=== PATIENT | female | born 1950 | race Caucasian/White ===

== ENCOUNTER 2017-09-13 14:24 | Inpatient (IN) | payer BC ==
[~2017-09-13] VITALS: Ht 172.7 cm; Wt 79.4 kg
[2017-09-13] MEDS ORDERED: BUPROPION HCL SR 150 MG TABLET (14:52)
[2017-09-13] MEDS ORDERED: ESCITALOPRAM 10 MG TABLET (14:52)
[2017-09-13] MEDS ORDERED: HYDROCODON-ACETAMINOPHN 10-325 (14:52)
--- NOTE | 2017-09-13 15:00 | NUR ---
PRESENTS TO ER C/O CONSTIPATION X 5 DAYS WITH LOWER ABDOMINAL PAIN. PATIENT A/OX 4. BREATHING EVEN AND UNLABORED. NO SOB. VITALS STABLE. SAFETY AND COMFORT MEASURES IN PLACE. AWAITING MD ORDERS.
--- NOTE | 2017-09-13 15:25 | NUR ---
NEW IV STARTED ON LAC, 18 G. BLOOD DRAWN AND SENT TO LAB.
[2017-09-13] MEDS ORDERED: ONDANSETRON HCL/PF 4 MG/2 ML VIAL ONE (15:26)
[2017-09-13] MEDS ORDERED: MORPHINE SULFATE INJ 2 MG/ML DISP.SYRIN ONE (15:26)
[2017-09-13 15:27] LABS: BASOPHILS # (AUTO) 0.1 /CMM (0.0-0.2); BASOPHILS % (AUTO) 1.2 % (0.0-2.0); HEMATOCRIT 44 % (33-45); HEMOGLOBIN 14.7 g/dL (11.5-14.8); LYMPHOCYTES # (AUTO) 0.4 /CMM (0.8-4.8); LYMPHOCYTES % (AUTO) 4.8 % (20.0-44.0); MEAN CORPUSCULAR HEMOGLOBIN 33 PG (26.0-33.0); MEAN CORPUSCULAR HGB CONC 33 g/dl (31.0-36.0); MEAN CORPUSCULAR VOLUME 99 fL (82-100); MONOCYTES # (AUTO) 0.6 /CMM (0.1-1.30); MONOCYTES % (AUTO) 6.2 % (2.0-12.0); NEUTROPHILS # (AUTO) 7.8 /CMM (1.8-8.9); NEUTROPHILS % (AUTO) 87.8 % (43.0-81.0); PLATELET COUNT (AUTO) 268 /CMM (150-450); RDW COEFFICIENT OF VARIATION 11.9 (11.5-15.0); RED BLOOD CELL COUNT(AUTO) 4.46 MIL/uL (4.0-5.2); WHITE BLOOD COUNT (AUTO) 8.9 K/uL (4.3-11.0)
[2017-09-13] MEDS ORDERED: ONDANSETRON HCL/PF 4 MG/2 ML VIAL IVP ONE (15:30)
[2017-09-13] MEDS ORDERED: IV NS 0.9% 1,000 ML BAG IV ONE (15:30)
[2017-09-13] MEDS ORDERED: MORPHINE SULFATE INJ 2 MG/ML DISP.SYRIN IV ONE (15:30)
--- NOTE | 2017-09-13 15:34 | NUR ---
PATIENT MEDICATED PER MD ORDERS.
[2017-09-13 15:37] LABS: CALCIUM, SERUM 9.1 mg/dL (8.5-10.1); CREATININE 1.3 mg/dL (0.6-1.3); POTASSIUM 4.1 mmol/L (3.5-5.1)
[2017-09-13 15:42] LABS: ALBUMIN 3.3 g/dL (3.4-5.0); BILIRUBIN,DIRECT 0.4 mg/dL (0.0-0.2); BILIRUBIN,TOTAL 1.2 mg/dL (0.2-1.0); TOTAL PROTEIN, SERUM 7.3 g/dL (6.4-8.2)
[2017-09-13] MEDS ORDERED: HYDR-3658 PO (16:41)
[2017-09-13] MEDS ORDERED: ESCI10TA PO (16:41)
[2017-09-13] MEDS ORDERED: FLUT16SP16 NS (16:41)
[2017-09-13] MEDS ORDERED: BUPR150T10 PO (16:41)
--- NOTE | 2017-09-13 16:46 | NUR ---
CALLED NURSE SUP FOR TELE BED
[2017-09-13] MEDS ORDERED: METRONIDAZOLE 500MG/ NS 100ML 100 ML IV ONE (16:47)
[2017-09-13] MEDS ORDERED: CIPROFLOXACIN IV RTU 200 ML IV ONE (16:47)
[2017-09-13] MEDS ORDERED: METRONIDAZOLE 500MG/ NS 100ML 500 MG in PREMIX 1 EA IV SCH (17:00)
[2017-09-13] MEDS ORDERED: CIPROFLOXACIN IV RTU 400 MG in PREMIX 1 EA IV SCH (17:00)
--- NOTE | 2017-09-13 17:27 | NUR ---
MEAT TEAM LEAD REPORT NOTE RECEIVED TELEPHONE REPORT FROM REAL ESTATE FINANCIAL ANALYST SUSHANT. AWAITING FOR THE PATIENT'S ARRIVAL TO THE UNIT.
--- NOTE | 2017-09-13 17:35 | NUR ---
REPORT GIVEN TO THIERNO SHEPHERD FOR SHERMAN UPON ADMISSION.
[2017-09-13] MEDS ORDERED: ONDANSETRON HCL/PF 4 MG/2 ML VIAL IVP PRN (18:00)
[2017-09-13] MEDS ORDERED: FENTANYL PF 100MCG/2ML AMPUL IV PRN (18:00)
[2017-09-13] MEDS ORDERED: ACETAMINOPHEN 650 MG/SUPP.RECT RC PRN (18:00)
[2017-09-13 18:03] VITALS: BP 90/62
--- NOTE | 2017-09-13 18:03 | NUR ---
MS RN ADMITTING NOTE PATIENT ARRIVED TO THE UNIT. PATIENT IS 67 Y/O FEMALE, A/OX4,AWAKE, COOPERATIVE, ORIENTED TO OWN ABILITY, AMBULATORY. SKIN INTACT WITH SMALL RED SCRATCHMARKS PRESENT ON THE ABDOMEN. PER PATIENT'S REPORT THOSE ARE DUE TO SCRATCHING THE AREA HEATED BY THE HEAT PAD. PATIENT DENIES SOB, DIFFICULTY BREATHING. REPORTS ACUTE PAIN RATING 9/10 IN LOWER ABDOMEN. WILL ADMINISTER MORPHINE PRESCRIBED. LEFT AC 18 G PERIPHERAL IV IS INTACT. NO S/S INFILTRATION ON IV SITE. BED IS LOCKED, IN LOWEST POSITION, SIDE RAILS UP X2, BED ALARM IS ON. PATIENT IS IN GANDHI'S POSITION. ALL NEEDS MET AT THIS TIME. CALL LIGHT WITHIN REACH. PATIENT WAS EDUCATED TO USE THE CALL LIGHT TO CALL FOR ASSISTANCE AND VERBALIZED FULL UNDERSTANDING OF THE TEACHINGS. WILL ENDORSE TO THE COMPUTATIONAL CHEMIST NURSE TO CONTINUE THE ADMISSION PROCESS.
--- NOTE | 2017-09-13 18:05 | NUR ---
PATIENT TRANSPORTED TO [facility] VIA ACLS PROTOCOL FOR ADMISSION. RNTHIERNO TO PROVIDE SHERMAN.
[2017-09-13] MEDS: ENOXAPARIN SODIUM 40 MG/0.4 ML DISP.SYRIN SQ SCH (18:56)
[2017-09-13] MEDS: IV NS 0.9% 1,000 ML IV PRN (19:09)
[2017-09-13] MEDS: MORPHINE SULFATE INJ 4 MG/ML DISP.SYRIN IV PRN ×2 (19:11→23:29)
--- NOTE | 2017-09-13 19:20 | NUR ---
GLASS FURNACE OPERATORWATCH INSPECTOR FINAL MOVEMENT NOTES RECEIVED PATIENT RESTING IN BED, A & O X 4. NO SOB, NO ACUTE CHANGES NOTED. HAS C/O ABD PAIN, PRN MORPHINE GIVEN ALREADY BY AM RN. BODY CHECK DONE. PHOTOS TAKEN. IV ACCESS TO LAC, INTACT PATENT RUNNING WITH NS @ 75 ML/HR. AMBULATORY, NPO @ THIS TIME. ON TELE MONITORING. ALL BELONGINGS ACCOUNTED FOR BY AM BRICK BURNER & DOCUMENTED. BED IN LOW LOCKED POSITION. ALL ORDERS WERE VERIFIED BY AM RN WITH MD. CALL LIGHT WITHIN REACH. WILL CONTINUE TO OBSERVE CLOSELY.
[2017-09-13 20:00] VITALS: BP 106/64
[2017-09-13] MEDS: CEFAZOLIN 1 GM in IV D5W 50 ML IV SCH (20:55)
--- NOTE | 2017-09-13 23:29 | NUR ---
PRN MORPHINE GIVEN PT C/O ABDOMINAL PAIN 05/15 & WANTED TO TAKE MORPHINE. PRN MORPHINE GIVEN. WILL REASSESS FOR EFFECTIVENESS.
[2017-09-14] VITALS (7 sets, daily range): BP systolic 98–128; BP diastolic 65–98
[2017-09-14] MEDS: METRONIDAZOLE 500MG/ NS 100ML 500 MG in PREMIX 1 EA IV SCH ×4 (00:09→17:14)
[2017-09-14] MEDS: MORPHINE SULFATE INJ 4 MG/ML DISP.SYRIN IV PRN ×5 (04:17→21:28)
--- NOTE | 2017-09-14 04:17 | NUR ---
PRN MORPHINE GIVEN PT C/O ABDOMINAL PAIN 05/15 & WANTED TO TAKE MORPHINE. PRN MORPHINE GIVEN. NO ACUTE DISTRESS NOTED. WILL REASSESS.
[2017-09-14] MEDS: CEFAZOLIN 1 GM in IV D5W 50 ML IV SCH ×3 (04:55→21:26)
[2017-09-14 05:57] LABS: EOSINOPHILS % (AUTO) 0.1 % (0.0-6.0); HEMATOCRIT 39 % (33-45); LYMPHOCYTES # (AUTO) 0.4 /CMM (0.8-4.8); MEAN CORPUSCULAR HEMOGLOBIN 33 PG (26.0-33.0); MEAN CORPUSCULAR HGB CONC 34 g/dl (31.0-36.0); MEAN CORPUSCULAR VOLUME 99 fL (82-100); MONOCYTES # (AUTO) 0.7 /CMM (0.1-1.30); MONOCYTES % (AUTO) 8.2 % (2.0-12.0); NEUTROPHILS # (AUTO) 7.9 /CMM (1.8-8.9); NEUTROPHILS % (AUTO) 87.7 % (43.0-81.0); PLATELET COUNT (AUTO) 231 /CMM (150-450); RDW COEFFICIENT OF VARIATION 12.6 (11.5-15.0); RED BLOOD CELL COUNT(AUTO) 3.91 MIL/uL (4.0-5.2)
[2017-09-14 06:19] LABS: CALCIUM, SERUM 8.4 mg/dL (8.5-10.1); MAGNESIUM 2.5 mg/dL (1.8-2.4); PHOSPHORUS 3.7 mg/dL (2.5-4.9); POTASSIUM 4.7 mmol/L (3.5-5.1)
--- NOTE | 2017-09-14 06:52 | NUR ---
REPAIR ARMATURE WINDER HELPER CLOSING NOTES PATIENT SLEPT WELL @ NIGHT. NO ACUTE DISTRESS NOTED. HAD C/O PAIN @ NIGHT. PRN MEDS GIVEN & WAS EFFECTIVE. IV ACCESS TO LAC, INTACT PATENT RUNNING WITH NS @ 75 ML/HR. ALL NEEDS MET. NO N/V NOTED. NPO. BRP. ON TELE MONITORING WITH SR 82 . BED IN LOW LOCKED POSITION. CALL LIGHT WITHIN REACH. WILL ENDORSE TO AM RN FOR CONTINUITY OF CARE.
[2017-09-14 06:53] LABS: THYROID STIMULATING HORMONE 1.483 uIU/mL (0.358-3.74)
--- NOTE | 2017-09-14 07:45 | NUR ---
RN INITIAL NOTES RECEIVED PT UP IN BED, ALERT, AWAKE, ABLE TO VERBALIZE NEEDS, NOTED WITH NO SOB, BREATHING EVEN AND UNLABORED, NO SIGNS OF ACUTE DISTRESS. IV NS INFUSING WELL ON LAC PERIPHERAL LINE @ 75 ML/HR. ALL PATIENT'S NEEDS ATTENDED TO. CALL LIGHT PLACED WITHIN EASY REACH. WILL CONTINUE TO MONITOR.
[2017-09-14] MEDS: PANTOPRAZOLE 40 MG VIAL IV SCH (08:49)
--- NOTE | 2017-09-14 10:37 | NUR ---
RN NOTE TAP WATER ENEMA DONE. PATIENT TOLERATED PROCEDURE WELL. WILL MONITOR FOR RESULTS.
--- NOTE | 2017-09-14 10:39 | NUR ---
RN NOTE PATIENT SEEN AND EXAMINED BY DR. GREY WITH NEW ORDERS, PATIENT MAY HAVE ICE CHIPS AND WATER AND MAY HAVE A TAP WATER ENEMA X 1. ALL ORDERS NOTED AND CARRIED OUT. PATIENT AWARE AND AGREES WITH PLAN OF CARE.
[2017-09-14] MEDS: IV NS 0.9% 1,000 ML IV PRN (11:18)
--- NOTE | 2017-09-14 15:30 | NUR ---
RN NOTES PATIENT SEEN AND EXAMINED BY DR. MCCLELLAND, AWAITING FOR CT OF ABD RESULT. PLAN OF CARE DISCUSSED WITH PATIENT AND PATIENT AGREES.
[2017-09-14] MEDS: FENTANYL PF 100MCG/2ML AMPUL IV PRN (15:45)
--- NOTE | 2017-09-14 18:36 | NUR ---
RN CLOSING NOTES PATIENT IN BED, ALERT AND ORIENTED X 4, SLEEPING BUT EASILY AROUSABLE, PATIENT WITH NO SOB NOTED, BREATHING EVEN AND UNLABORED, NO SIGNS AND SYMPTOMS OF ACUTE DISTRESS NOTED. PATIENT WITH IV NS INFUSING AT 75 CC ML/HR VIA PERIPHERAL LINE G22 ON LFA. ALL PATIENT'S NEEDS ATTENDED TO. PLACED CALL LIGHT WITHIN EASY REACH. WILL ENDORSE TO [facility] NURSE FOR SHERMAN.
--- NOTE | 2017-09-14 19:43 | NUR ---
MS RN OPENING NOTES RECEIVED PATIENT RESTING IN BED, A & O X 4. NO SOB NOTED. HAD C/O ABD PAIN 01/13, PRN MORPHINE WAS GIVEN ORDERED. NPO BUT CAN HAVE ICE CHIPS WHEN NEEDED. IV ACCESS TO DFA, INTACT PATENT RUNNING WITH NS @ 75 ML/HR. CALL LIGHT WITHIN REACH. BED IN LOW LOCKED POSITION. WILL CONTINUE TO OBSERVE.
--- NOTE | 2017-09-14 19:50 | NUR ---
DR MCCLELLAND CALLED CALLED, REVIEWED THE CT ABD/PELVIS WITH NEW ORDERS. NOTED & CARRIED OUT ALL ORDERS. WILL OBSRVE THE PT CLOSELY.
--- NOTE | 2017-09-14 19:50 | NUR ---
ADDENDUM DR. MCCLELLAND SPOKE TO THE PT OVER THE PHONE & EXPLAINED HER ABOUT CT SCAN RESULTS & PLAN OF CARE. PT VERBALIZED UNDERSTANDING.
--- NOTE | 2017-09-14 20:10 | NUR ---
LUIS, TANNING DRUM OPERATOR CALLED TANNING DRUM OPERATOR LUIS CALLED, REVIEWED THE CT OF ABD/PELVIS WITH NEW ORDERS. NOTED & CARRIED OUT. WILL MONITOR CLOSELY.
--- NOTE | 2017-09-14 20:55 | NUR ---
O2 STARTED PT STARTED ON 2LMP O2 NC DUE TO FLUCTUATING O2SAT BETWEEN 89-92 % @ RA. O2SAT NOTED TO BE UP TO 94 % AFTER O2 STARTED. IN SEMI GANDHI POSITION & WANTED TO BE IN THAT POSITION SINCE SHE FEELS COMFORTABLE.
[2017-09-14] MEDS ORDERED: IV NS 0.9% 500 ML IV ONE (21:00)
[2017-09-14] MEDS: ENOXAPARIN SODIUM 40 MG/0.4 ML DISP.SYRIN SQ SCH (21:31)
[2017-09-14] MEDS: IV D5/ 0.9% NACL 1,000 ML IV PRN (21:42)
[2017-09-15] MEDS: METRONIDAZOLE 500MG/ NS 100ML 500 MG in PREMIX 1 EA IV SCH ×5 (00:15→23:46)
[2017-09-15] MEDS: BLOOD SUGAR DIAGNOSTIC 1 EACH STRIP IN SCH ×5 (00:15→23:56)
--- NOTE | 2017-09-15 00:45 | NUR ---
PORTABLE BLADDER SCAN DONE PORTABLE BLADDER SCAN WAS DONE TO CHECK URINE VOLUME IN THE BLADDER & ABOUT 143ML OF URINE WAS NOTED DURING THE SCAN. CHARGE NURSE MADE AWARE & CN STATED THAT LAI CATH IS RECOMMENDED IF URINE VOL IS OVER 200ML. PT IS ABLE TO USE THE TOILET ON HER OWN. URINE OUT PUT WILL BE DONE @ THE END OF THE SHIFT.
[2017-09-15] MEDS: MORPHINE SULFATE INJ 4 MG/ML DISP.SYRIN IV PRN ×5 (02:26→23:45)
--- NOTE | 2017-09-15 02:26 | NUR ---
PRN MORPHINE GIVEN PT C/O ABDOMINAL PAIN 06/15. PRN MORPHINE GIVEN, CONTINUING TO OBSERVE CLOSELY & WILL REASSESS FOR EFFECTIVENESS.
--- NOTE | 2017-09-15 03:28 | NUR ---
LAI CATH INSERTED PATIENT NOTED TO HAVE LESS URINE OUTPUT WHILE URINATING. ON CONTINUOS IV FLUIDS, NPO. CODING SPEC LUIS MADE AWARE WITH NEW ORDER TO INSERT LAI. ORDER NOTED & CARRIED OUT. LAI CATH INSERTED USING STERILE TECHNIQUES WITH ALPESH/CONCENTRATED COLOR URINE FLOWING INTO THE LAI BAG. PROCEDURE TOLERATED WELL BY THE PATIENT. WILL CONTINUE TO MEASURE INTAKE & OUTPUT ORDERED.
[2017-09-15] MEDS: CEFAZOLIN 1 GM in IV D5W 50 ML IV SCH ×3 (05:12→22:06)
[2017-09-15 07:20] LABS: BILIRUBIN,TOTAL 0.3 mg/dL (0.2-1.0); CALCIUM, SERUM 8.2 mg/dL (8.5-10.1); CREATININE 0.7 mg/dL (0.6-1.3); POTASSIUM 4.5 mmol/L (3.5-5.1); TOTAL PROTEIN, SERUM 5.6 g/dL (6.4-8.2)
[2017-09-15 08:00] VITALS: BP 120/76
--- NOTE | 2017-09-15 08:00 | NUR ---
MS RN CLOSING NOTES PATIENT SLEPT INTERMITTENTLY @ NIGHT. HAD C/O ABD PAIN, PRN PAIN MEDS GIVEN. LAI CATH IN PLACE, FLOWING WITH DARK ALPESH/CONCENTRATED COLOR URINE. PT STATED INSERTING A LAI RELIEVED PAIN FROM ONE AREA OF HER ABD. IV ACCESS TO LFA, RUNNING WITH D5NS @ 125 ML/HR. NO SOB NOTED. ON O2 @ 2 LMP VIA NC. NPO AFTER MIDNIGHT. BED IN LOW LOCKED POSITION. CALL LIGHT WITHIN REACH. ENDORSED TO AM RM ABOUT PT'S CONDITION.
--- NOTE | 2017-09-15 08:00 | NUR ---
RN NOTES RECEIVED PATIENT IN THE ROOM, A/O X4, NO RESPIRATORY DISTRESS, PATIENT NPO STATUS, GOING TO HAVE A CT OF ABDOMEN/PELVIC WITH IV CONTRAST. IV LINE ON LEFT FOREARM INFUSING D5 NS AT 125 ML/HR INTACT, PATIENT C/O PAIN IN THE ABDOMEN, CALL LIGHT WITHIN TO REACH, SAFETY PRECAUTION MAINTAINED ALL THE TIME.
[2017-09-15] MEDS ORDERED: DIATR MEGLU/DIATRIZOATE SODIUM 30 ML BOTTLE (GASTROGRAPHIN) ONE (08:42)
[2017-09-15] MEDS: PANTOPRAZOLE 40 MG VIAL IV SCH (08:59)
--- NOTE | 2017-09-15 09:00 | NUR ---
RN NOTES PATIENT WAS COMPLAINING OF ABDOMINAL PAIN 07/15, ADMINISTERED MORPHINE SULFATE 4MG/ML IV PUSH, PER PATIENT REQUEST, ALSO PATIENT NPO, GOING TO HAVE A CT ABDOMEN/PELVIS WITH IV CONTRAST. PATIENT DRINKING GASTROGRAFIN MED DILUTED WITH WATER 800 ML, FOR BOWEL PREPARATION BY X-RAY TECH, V/S TAKE STABLE BP -120/76, P-81, SEEN LUIS BORGES HONEY PRODUCER, AND SURGEON. CALL LIGHT WITHIN TO REACH, CONTINUED MONITORING.
[2017-09-15 09:15] LABS: HEMATOCRIT 37 % (33-45); HEMOGLOBIN 12.3 g/dL (11.5-14.8); LYMPHOCYTES # (AUTO) 0.4 /CMM (0.8-4.8); LYMPHOCYTES % (AUTO) 3.8 % (20.0-44.0); MEAN CORPUSCULAR HEMOGLOBIN 33 PG (26.0-33.0); MEAN CORPUSCULAR HGB CONC 33 g/dl (31.0-36.0); MEAN CORPUSCULAR VOLUME 99 fL (82-100); MONOCYTES # (AUTO) 0.6 /CMM (0.1-1.30); MONOCYTES % (AUTO) 5.5 % (2.0-12.0); NEUTROPHILS # (AUTO) 9.1 /CMM (1.8-8.9); NEUTROPHILS % (AUTO) 90.7 % (43.0-81.0); PLATELET COUNT (AUTO) 252 /CMM (150-450); RDW COEFFICIENT OF VARIATION 12.9 (11.5-15.0); RED BLOOD CELL COUNT(AUTO) 3.78 MIL/uL (4.0-5.2); WHITE BLOOD COUNT (AUTO) 10.1 K/uL (4.3-11.0)
[2017-09-15] MEDS: IV D5/ 0.9% NACL 1,000 ML IV PRN ×2 (09:26→22:08)
[2017-09-15 10:36] LABS: BAND % (MANUAL) 28 % (0.0-5.0); LYMPHOCYTES % (MANUAL) 4 % (16-48); MONOCYTES % (MANUAL) 7 % (0-11.0); NEUTROPHILS % (MANUAL) 61 (42-76)
--- NOTE | 2017-09-15 11:56 | NUR ---
RN NOTES PATIENT GOING AT THIS TIME TO CT ABDOMEN/ PELVIS EXAMINATION WITH IV CONTRAST. PATIENT SHINGLE SAWYER BY X-RAY TECH.
[2017-09-15] MEDS ORDERED: IV NS 0.9% 250 ML IV ONE (12:00)
[2017-09-15] MEDS ORDERED: CT SWABBABLE VALVE TRANS SET 1 EA INFUS.SET MC ONE (12:00)
[2017-09-15] MEDS ORDERED: IOHEXOL-300 100 ML VIAL IV ONE (12:00)
--- NOTE | 2017-09-15 12:42 | NUR ---
RN NOTES PATIENT BACK FROM CT SCAN, STILL NPO, BS-123 MG/DL, INFUSING D5 NS 125 ML/HR, INTACT, CALL LIGHT WITHIN TO REACH, LAI CATHETER DRAIN DARK YELLOW OUTPUT, CONTINUED MONITORING.
--- NOTE | 2017-09-15 13:48 | NUR ---
RN NOTES ADMINISTERED MORPHINE 4/1 MG/ML IV PUSH PER PATIENT REQUEST FOR ABDOMINAL PAIN 03/15, V/S TAKEN STABLE BP- 114/67, P-74, CALL LIGHT WITHIN TO REACH, CONTINUED MONITORING.
[2017-09-15 15:33] LABS: INR 1.03 (0.87-1.13); PROTHROMBIN TIME 10.7 SECS (9.5-12.7)
[2017-09-15 16:00] VITALS: BP 128/70
--- NOTE | 2017-09-15 16:54 | NUR ---
RN NOTES PATIENT IN THE BED RESTING, NO ACUTE DISTRESS, MEDICATION WERE ADMINISTERED FOR PAIN EFFECTIVE, F/C DRAIN YELLOW OUTPUT, PATIENT STILL NPO, CALL LIGHT WITHIN TO REACH, SAFETY PRECAUTION MAINTAINED ALL THE TIME.
--- NOTE | 2017-09-15 17:00 | NUR ---
RN NOTES BS- 145 MG/DL, NO COVERAGE GIVEN BECAUSE PATIENT NPO. AYANA UED MONITORING.
--- NOTE | 2017-09-15 18:41 | NUR ---
RN NOTES ADMINISTERED MORPHINE 4 MG/ML IV PUSH PER PATENT REQUEST FOR GENERALIZED PAIN 07/15, PER PATIENT REQUEST, F/C DRAIN YELLOW OUTPUT, UA TAKEN CALLED LAB FOR CENTRAL SUPPLY MANAGER, PATIENT NPO, INFUSING IV ON LEFT FOREARM INTACT, CALL LIGHT WITHIN TO REACH, CONTINUED MONITORING. ENDORSED ONCOMING NURSE FOR CONTINUATION OF CARE.
--- NOTE | 2017-09-15 19:40 | NUR ---
MS RN OPENING NOTES RECEIVED PT IN BED ALERT, AWAKE,VERBALLY RESPONSIVE.ON O2 VIA NC AT 2L/MIN,RESPIRATIONS EVEN,UNLABORED ,NO APPARENT DISTRESS NOTED.DENIES ANY PAIN OR DISCOMFORT AT THIS TIME,IV SITE LT FA, INTACT,PATENT,NO S/SX OF INFILTRATION NOTED. CALL LIGHT EIYHIN REACH.KEPT CLEAN AND COMFORTABLE.ATTENDED ALL NEEDS WILL CONTINUE TO MONITOR ACCORDINGLY.
[2017-09-15 21:26] LABS: APPEARANCE,URINE CLEAR (CLEAR); BILIRUBIN,URINE NEGATIVE (NEGATIVE); BLOOD, URINE 3+ Ery/uL (NEGATIVE); COLOR,URINE YELLOW (YELLOW); KETONES,URINE 2+ (NEGATIVE); LEUKOCYTE ESTERASE ,URINE NEGATIVE (NEGATIVE); NITRITE, URINE NEGATIVE (NEGATIVE); PH,URINE 5.5 (5.0-8.0); PROTEIN,URINE TRACE mg/dl (NEGATIVE); UGLUCOSE NEGATIVE (NEGATIVE); UROBILINOGEN,URINE 0.2 EU/dL (0.2)
[2017-09-15 21:46] LABS: BACTERIA,URINE Few /HPF (None Seen); RBC,URINE 21-50 /HPF (0-2); SQUAMOUS EPITHELIAL CELL,UR Rare /HPF (None Seen); WBC,URINE 0-2 /HPF (0-3)
[2017-09-15 22:00] VITALS: BP 122/64
[2017-09-16] VITALS (13 sets, daily range): BP systolic 108–145; BP diastolic 65–80
--- NOTE | 2017-09-16 00:05 | NUR ---
MS RN NOTES ADMINISTERED MORPHINE 4MG/ML IVP PER PT REQUEST FOR ABDOMINAL PAIN. BLOOD GLUCOSE 134, NO COVERAGE GIVEN,PT NPO.WILL CONTINUE TO MONITOR ACCORDINGLY.
[2017-09-16] MEDS: CEFAZOLIN 1 GM in IV D5W 50 ML IV SCH ×3 (04:18→23:25)
[2017-09-16] MEDS: MORPHINE SULFATE INJ 4 MG/ML DISP.SYRIN IV PRN ×3 (04:19→15:25)
--- NOTE | 2017-09-16 04:29 | NUR ---
MS RN NOTES ADMINISTERED MORPHINE 4MG PER PT REQUEST, COMPLAINED OF ABDOMINAL PAIN. WILL CONTINUE TO MONITOR.ATTENDED ALL NEEDS
[2017-09-16] MEDS: METRONIDAZOLE 500MG/ NS 100ML 500 MG in PREMIX 1 EA IV SCH ×3 (05:23→22:09)
[2017-09-16] MEDS: BLOOD SUGAR DIAGNOSTIC 1 EACH STRIP IN SCH ×3 (05:24→15:59)
--- NOTE | 2017-09-16 06:43 | NUR ---
MS RN CLOSING NOTES PT IN BED AWAKE,ALERT,VERBALLY RESPONSIVE,ON O2 VIA N/C AT 2L/MIN,NO SOB,NO APPARENT DISTRESS NOTED. CALL LIGHT WITHIN REACH.KEPT CLEAN AND COMFORTABLE.ATTENDED ALL NEEDS.WILL CONTINUE TO MONITOR ACCORDINGLY
[2017-09-16] MEDS: FENTANYL PF 100MCG/2ML AMPUL IV PRN (07:08)
[2017-09-16 07:55] LABS: BASOPHILS % (AUTO) 0.1 % (0.0-2.0); EOSINOPHILS % (AUTO) 0.1 % (0.0-6.0); HEMATOCRIT 40 % (33-45); HEMOGLOBIN 13.2 g/dL (11.5-14.8); LYMPHOCYTES # (AUTO) 0.5 /CMM (0.8-4.8); LYMPHOCYTES % (AUTO) 4.7 % (20.0-44.0); MEAN CORPUSCULAR HEMOGLOBIN 33 PG (26.0-33.0); MEAN CORPUSCULAR HGB CONC 33 g/dl (31.0-36.0); MEAN CORPUSCULAR VOLUME 99 fL (82-100); MONOCYTES % (AUTO) 9.9 % (2.0-12.0); NEUTROPHILS # (AUTO) 8.9 /CMM (1.8-8.9); NEUTROPHILS % (AUTO) 85.2 % (43.0-81.0); PLATELET COUNT (AUTO) 274 /CMM (150-450); RDW COEFFICIENT OF VARIATION 12.8 (11.5-15.0); RED BLOOD CELL COUNT(AUTO) 4.01 MIL/uL (4.0-5.2); WHITE BLOOD COUNT (AUTO) 10.4 K/uL (4.3-11.0)
[2017-09-16 08:09] LABS: INR 1.06 (0.87-1.13)
[2017-09-16 08:12] LABS: CALCIUM, SERUM 8.4 mg/dL (8.5-10.1); CREATININE 0.6 mg/dL (0.6-1.3)
--- NOTE | 2017-09-16 08:22 | NUR ---
MS RN OPENING NOTES RECEIVED PT A&0X3. PT NPO. PT TOLERATING ROOM AIR WITH NO SOB AND SAO2 99% WITH RA. PT REPORTING MODERATE GENERALIZED PAIN. PT IVC AT L FOREARM IS INTACT AND OPERATIONAL. PT WITH INDWELLING LAI AND DRAINING CLEAR YELLOW URINE. BED IN LOWEST LOCKED POSITION WITH HANDRAILSX3 AND CALL HAWTHORNE WITHIN REACH. PT BRIEFED ON TODAY'S POC AND IS WITHOUT CONCERN OR COMPLAINT AT THIS TIME.
[2017-09-16] MEDS: PANTOPRAZOLE 40 MG VIAL IV SCH (08:48)
[2017-09-16] MEDS ORDERED: MIDAZOLAM HCL 5MG/ML VIAL 25 MG/5 ML VIAL IV ONE (09:30)
[2017-09-16] MEDS ORDERED: FENTANYL PF 250MCG/5ML AMPUL IV ONE (09:30)
[2017-09-16] MEDS ORDERED: NALOXONE PREFILLED SYRINGE 2 MG/2 ML SYRINGE IV ONE (09:30)
[2017-09-16] MEDS: IV D5/ 0.9% NACL 1,000 ML IV PRN (12:15)
[2017-09-16] MEDS ORDERED: ANESTHESIA TRAY IN PYXIS 1 EA TRAY MC ONE (16:07)
--- NOTE | 2017-09-16 16:10 | NUR ---
RN NOTES. PT TRANSPORT ARRIVED 50MIN EARLY AND TAKEN TO SURG. PT BELONGINGS BAGGED TAGGED AND AT CHARGE NURSE DESK. WILL ENDORSE TO NIGHT NURSE TO RETURN AND SIGN.
[2017-09-16] MEDS ORDERED: MIDAZOLAM HCL 2 MG/2ML VIAL ONE (16:40)
[2017-09-16] MEDS ORDERED: FENTANYL PF 100MCG/2ML AMPUL ONE ×2 (16:40→18:59)
[2017-09-16] MEDS ORDERED: ROCURONIUM BROMIDE 50 MG/5 ML ONE ×2 (16:40→18:06)
[2017-09-16] MEDS ORDERED: BUPIVACAINE 0.25% 75 MG/30 ML VIAL ONE (16:41)
[2017-09-16] MEDS ORDERED: LIDOCAINE 0.5% HCL 50 ML VIAL ONE (16:41)
[2017-09-16] MEDS ORDERED: BUPIVACAINE 0.5 % PF 150 MG/30 ML VIAL ONE (16:41)
[2017-09-16] MEDS ORDERED: METRONIDAZOLE 500MG/ NS 100ML 100 ML IV ONE (17:07)
--- NOTE | 2017-09-16 18:15 | NUR ---
RN CLOSING NOTES. PT REMAINS IN SURGERY. WILL ENDORSE TO CARE TO NIGHT NURSE.
[2017-09-16] MEDS ORDERED: ONDANSETRON HCL/PF 4 MG/2 ML VIAL ONE (19:13)
[2017-09-16] MEDS ORDERED: MORPHINE SULFATE INJ 2 MG/ML DISP.SYRIN IM PRN (19:30)
[2017-09-16] MEDS ORDERED: MORPHINE SULFATE INJ 2 MG/ML DISP.SYRIN IV PRN (19:30)
[2017-09-16] MEDS ORDERED: ONDANSETRON HCL/PF 4 MG/2 ML VIAL IV PRN (19:30)
[2017-09-16] MEDS ORDERED: FLUCONAZOLE IN NS 100 MG in PREMIX 1 EA IV SCH ×2 (19:30)
[2017-09-16] MEDS ORDERED: NALOXONE HCL 0.4 MG/ML AMPUL IV PRN (19:30)
--- NOTE | 2017-09-16 20:15 | NUR ---
RN OPENING NOTES: RECEIVED PATIENT IN BED, AOX4, ON O2 AT 3 LPM VIA NC, BREATHING EVEN AND UNLABORED, BREATH SOUNDS DIMINISHED AT BASES. APPEARS CALM, BUT COMPLAINS OF SEVERE PAIN OVER ABDOMEN. NOTED MIDLINE INCISION OVER ABDOMEN WITH CLEAN AND INTACT DRESSING, ROLF DRAIN INSERTED AT SMALL INCISION OVER LOWER ABDOMEN, DRAINING SEROSANGUINEOUS FLUID. A NEWLY FORMED COLOSTOMY NOTED OVER LEFT ANTERIOR ABDOMEN, DRAINING SMALL AMOUNT OF MUCUS/ BLOOD AT THIS TIME. PIV OVER LFA G 22 INTACT AND PATENT TO FLUSH. PROVIDED FOR COMFORT AND SAFETY. WILL CONT TO MONITOR. Addendum: 09/17/17 at 0336 by CALEB MIDDLETON RN ADDITIONAL NOTES: PATIENT HAS NGT INSERTED OVER LEFT NARES, CONNECTED TO LOW INTERMITTENT SUCTION, DRAINING SMALL AMOUNT OF DARK REDDISH BROWN FLUID. MAITAINED HOB ELEVATED. PATIENT DENIES FEELING OF BLOATING OR NAUSEA AT THIS TIME.
[2017-09-16] MEDS: MORPHINE SULFATE 30 MG in IV NS 0.9% 28 ML, PCA TOTAL VOLUME 1 BAG IV PRN ×3 (20:54)
--- NOTE | 2017-09-16 20:54 | NUR ---
STARTED HANDYMAN PUMP : MORPHINE 30 MG/30 ML, WITH SETTINGS ORDERED BY DR GREY, COSIGNED BY CHARGE NURSE, SIMONE. EDUCATED PATIENT ON USE OF MORPHINE HANDYMAN. CONNECTED PATIENT TO PULSE OXIMETER, O2 SAT AT 96-98% ON O2 AT 3 LPM VIA NC. PATIENT SCALED 10/10 PAIN OVER ABDOMINAL INCISION. WILL CONT TO MONITOR FOR PAIN RELIEF.
[2017-09-16] MEDS: IV D5/0.45 NACL W/20 MEQ KCL 1L IV PRN ×2 (20:58)
[2017-09-16] MEDS ORDERED: ENOXAPARIN SODIUM 40 MG/0.4 ML DISP.SYRIN SQ SCH (21:00)
[2017-09-16] MEDS: METOCLOPRAMIDE HCL 10 MG/2 ML VIAL IV SCH (22:08)
[2017-09-17] VITALS (9 sets, daily range): BP systolic 101–125; BP diastolic 57–81
[2017-09-17] MEDS ORDERED: PIPERACILLIN /TAZOBACTAM 3.375 G in IV D5W 50 ML IV SCH ×2
--- NOTE | 2017-09-17 | NUR ---
BLOOD SUGAR CHECKED AT 216 MG/DL. PATIENT ON NPO. ALSO DRAINED 70 ML OF SEROSANGUINEOUS FLUID FROM ROLF DRAIN. WILL CONT TO MONITOR.
[2017-09-17] MEDS: FLUCONAZOLE IN NS 100 MG in PREMIX 1 EA IV SCH ×4 (00:23→21:19)
[2017-09-17] MEDS: PIPERACILLIN /TAZOBACTAM 3.375 G in IV D5W 50 ML IV SCH ×4 (00:32→18:22)
[2017-09-17] MEDS: BLOOD SUGAR DIAGNOSTIC 1 EACH STRIP IN SCH ×4 (00:39→18:22)
--- NOTE | 2017-09-17 03:00 | NUR ---
RN NOTES: NOTED NGT TO INTERMITTENT SUCTION STILL WITH MINIMAL DRAINAGE. PATIENT DENIES NAUSEA, EPIGASTRIC PAIN OR BLOATING, BUT DOES COMPLAIN OF PAIN OVER LOWER ABDOMINAL INCISION. PATIETN ABLE TO USE SENIOR CASE MANAGER PUMP NEEDED.
[2017-09-17] MEDS: METOCLOPRAMIDE HCL 10 MG/2 ML VIAL IV SCH ×2 (03:34→21:19)
[2017-09-17] MEDS: METRONIDAZOLE 500MG/ NS 100ML 500 MG in PREMIX 1 EA IV SCH ×4 (03:34→21:20)
[2017-09-17] MEDS: IV D5/0.45 NACL W/20 MEQ KCL 1L IV PRN ×4 (05:20→15:51)
--- NOTE | 2017-09-17 05:50 | NUR ---
BLOOD SUGAR CHECKED AT 215 MG/DL.
--- NOTE | 2017-09-17 06:54 | NUR ---
MS RN CLOSING NOTES: PATIENT IN BED, AOX4, ON O2 AT 4 LPM VIA NC, BREATHING EVEN AND UNLABORED. APPEARS CALM AND IN NO DISTRESS, STATES THAT PAIN HAS DECREASED TO 6/10 SCALE. NGT INSERTED OVER LEFT NARES, ATTACHED TO LOW INTERMITTENT SUCTION. PIV OVER R HAND G 20 INTACT AND INFUSING WELL WITH IV ZOSYN AT THIS TIME, PIV OVER LFA G 22 INTACT NAD INFUSING WELL WITH D5 1/2 NS + 20 MEQS KCL RUNNING AT 125 ML/HR, ALSO HOOKED TO ORTHOPEDIC SHOES SALESPERSON PUMP OF MORPHINE 1 MG/ML CONCENTRATION, REMAINING 6 ML IN BAG PER ORTHOPEDIC SHOES SALESPERSON PUMP. MID ABDOMINAL DRESSING CLEAN AND INTACT. ROLF DRAIN ATTACHED, STILL DRAINING SEROSANGUINEOUS FLUID, TOTAL OF 100 CC DRAINED THROUGH SHIFT. COLOSTOMY BAG DRAINED OF BLOODY FLUID, 50 CC THROUGH SHIFT. LAI CATHETER IN PLACE DRAINING DARK, TEA COLORED URINE. DUE MEDS GIVEN, PROVIDED FOR COMFORT AND SAFETY. MORNING CARE RENDERED. EDUCATED ON INCENTIVE SPIROMETER USE. CONTINUE TO MONITOR VS AND O2 SAT, VS REMAINED STABLE THROUGH SHIFT. MAINTAINED HOB ELEVATED. WILL ENDORSE TO AM RN FOR SHERMAN.
[2017-09-17] MEDS: CEFAZOLIN 1 GM in IV D5W 50 ML IV SCH ×3 (07:03→21:20)
[2017-09-17] MEDS ORDERED: KEY,NONCONTROL,TO KEEP IN PYXI 1 EA MC ONE ×2 (07:36→23:49)
--- NOTE | 2017-09-17 08:00 | NUR ---
RN OPENING NOTES PT RECEIVED A&0X3, CHEERY AND REPORTING SHE IS 'OUT OF IT'. PT WITH NC 4LPM AND NO SOB SAO2 96% AND UNLABORED. PT WITH THROAT CUTTER - 7ML REMAINING OF 30ML BAG. CONCENTRATION 1ML/1MG, LOCKOUT 8MIN, 1HR MAX LIMIT 7. REPORTING NO PAIN AT THIS TIME. PT WITH IVCX2. R IVC G20 INTACT AND OPERATIONAL. L IVC AT FOREARM INTACT AND OPERATIONAL. PT LAI INTACT AND OPERATIONAL. NAD AT NEW TEMP COLOSTOMY BAG, APPROX 25CC MUCOID SANGUINOUS FLUID COLLECTED.NGT SET TO LOW INTERMITTENT SUCTION. ROLF DRAIN WITH 50CC SANGUINOUS COLLECTION. MS RN OPENING. BED IN LOWEST LOCKED POSITION WITH HANDRAILSX4 AND CALL HAWTHORNE WITHIN REACH. PT BRIEFED ON TODAY'S POC, PT WITHOUT CONCERNS OR COMPLAINTS AT THIS TIME. WILL CONTINUE TO MONITOR.
[2017-09-17] MEDS: PANTOPRAZOLE 40 MG VIAL IV SCH (08:08)
--- NOTE | 2017-09-17 08:20 | NUR ---
RN NOTES. PHARMACY CONTACTED TO RESCHEDULE IV/AB AND MEDICATIONS TO APPROPRIATE TIMES.
[2017-09-17 08:33] LABS: HEMATOCRIT 42 % (33-45); HEMOGLOBIN 14.2 g/dL (11.5-14.8); LYMPHOCYTES # (AUTO) 0.5 /CMM (0.8-4.8); LYMPHOCYTES % (AUTO) 3.5 % (20.0-44.0); MEAN CORPUSCULAR HEMOGLOBIN 33 PG (26.0-33.0); MEAN CORPUSCULAR HGB CONC 34 g/dl (31.0-36.0); MEAN CORPUSCULAR VOLUME 98 fL (82-100); MONOCYTES # (AUTO) 0.8 /CMM (0.1-1.30); MONOCYTES % (AUTO) 5.3 % (2.0-12.0); NEUTROPHILS # (AUTO) 14.1 /CMM (1.8-8.9); NEUTROPHILS % (AUTO) 91.2 % (43.0-81.0); PLATELET COUNT (AUTO) 354 /CMM (150-450); RDW COEFFICIENT OF VARIATION 13.7 (11.5-15.0); RED BLOOD CELL COUNT(AUTO) 4.31 MIL/uL (4.0-5.2); WHITE BLOOD COUNT (AUTO) 15.4 K/uL (4.3-11.0)
[2017-09-17 09:07] LABS: CALCIUM, SERUM 7.5 mg/dL (8.5-10.1); CREATININE 1.1 mg/dL (0.6-1.3); POTASSIUM 4.6 mmol/L (3.5-5.1)
[2017-09-17] MEDS: MORPHINE SULFATE 30 MG in IV NS 0.9% 28 ML, PCA TOTAL VOLUME 1 BAG IV PRN ×3 (10:28)
[2017-09-17 12:02] LABS: BAND % (MANUAL) 16 % (0.0-5.0); LYMPHOCYTES % (MANUAL) 2 % (16-48); MONOCYTES % (MANUAL) 8 % (0-11.0); NEUTROPHILS % (MANUAL) 74 (42-76)
--- NOTE | 2017-09-17 13:00 | NUR ---
RN NOTES. PT REMOVED R IVC. COMPRESSION APPLIED AND PT CLEANED.
--- NOTE | 2017-09-17 16:00 | NUR ---
RN NOTES. PT R IVC REPLACED. PT WITH IVC G#22NOW AT R AC. INTACT AND OPERATIONAL.
--- NOTE | 2017-09-17 19:05 | NUR ---
RN CLOSING NOTES. PT A&0X3 RESTING IN BED. PT WITH NC 4LPM AND NO SOB, SAO2 MONITOR AT BEDSIDE WITH SA02 96% AT THIS TIME. PT WITH IVCX2. R IVC AT AC G22 INTACT AND OPERATIONAL. L IVC AT FA G22 INTACT AND OPERATIONAL. L IVC WITH RETARDER OPERATOR. PT REPORTING PAIN 4-6/10 TO SURGICAL INCISIONSX2. PT WITH MEDIAL ABDOMINAL INCISION- DRESSING CLEAN INTACT, ROLF DRAIN INSITU AND OPERATIONAL. L SIDE COLOSTOMY WITH BAG INTACT. RETARDER OPERATOR ENDORSED TO NIGHT NURSE WITH 15ML OF 30 REMAINING- ALL SETTINGS REVIEWED TOGETHER. ALL DAY NURSE DUTIES ATTENDED TO, HAVE ENDORSED TO NIGHT NURSE.
--- NOTE | 2017-09-17 19:40 | NUR ---
RN OPENING NOTES RECEIVED REPORT FROM GETACHEW RN. FOUND Pt AWAKE, RESTING IN BED. NO S/S OF ACUTE DISTRESS OR SOB NOTED. Pt IS A/OX3, VERBAL, & ABLE TO MAKE NEEDS KNOWN. IV ACCESS ON RAC #22G & LFA #22G. NEW ORDER CLERK PUMP CONNECTED. LAI IN PLACE AND DRAINING WELL. ROLF DRAIN ON R SIDE OF ABD, DRAINING WELL. TEMP COLOSTOMY BAG PLACED ON LT SIDE OF ABD. SAFETY MEASURES IN PLACE. BED LOW, LOCKED, HOB ELEVATED, SIDE RAILS UP, CALL LIGHT AND BEDSIDE TABLE WITHIN REACH. WILL CONTINUE TO MONITOR Pt THROUGHOUT THE NIGHT FOR SAFETY.
[2017-09-17] MEDS: ENOXAPARIN SODIUM 40 MG/0.4 ML DISP.SYRIN SQ SCH (21:21)
[2017-09-17] MEDS: MORPHINE SULFATE INJ 4 MG/ML DISP.SYRIN IV PRN (22:57)
--- NOTE | 2017-09-18 | NUR ---
ACCUCHECK BG 160. NO INSULIN ADMINISTERED AT THIS TIME DUE TO NPO STATUS.
[2017-09-18] MEDS ORDERED: MORPHINE SULFATE INJ 10 MG/ML DISP.SYRIN ONE (00:34)
[2017-09-18] MEDS: PIPERACILLIN /TAZOBACTAM 3.375 G in IV D5W 50 ML IV SCH ×5 (01:17→23:20)
--- NOTE | 2017-09-18 01:35 | NUR ---
RN NOTES RN PEDIATRIC BAG OF MORPHINE SULFATE 30MG WAS NOT AVAILABLE IN XIS. PHARMACY DID NOT PLACE NEW BAG IN XIS. HAD TO MAKE NEW MIX OF MORPHINE SULFATE 30MG IN NS 50ML BAG. HAD TO GO DOWN STAIRS TO [facility] TO GET 3 OF THE MORPHINE 10MG IVP VIALS. REMOVED 23ML OF NS FROM 50ML BAG (REMAINING 27ML OF NS), AND PLACED 3ML OF MORPHINE 10MG/ML, TO TOTAL 30MG/30ML RATIO. JOAO HINES WITNESSED FOR RN PEDIATRIC PUMP.
[2017-09-18] MEDS: IV D5/0.45 NACL W/20 MEQ KCL 1L IV PRN ×4 (01:38→16:27)
[2017-09-18] MEDS: BLOOD SUGAR DIAGNOSTIC 1 EACH STRIP IN SCH ×5 (01:49→23:20)
[2017-09-18] MEDS: METOCLOPRAMIDE HCL 10 MG/2 ML VIAL IV SCH ×4 (01:53→20:16)
[2017-09-18] MEDS: METRONIDAZOLE 500MG/ NS 100ML 500 MG in PREMIX 1 EA IV SCH ×4 (03:35→21:33)
[2017-09-18] MEDS: CEFAZOLIN 1 GM in IV D5W 50 ML IV SCH (05:15)
[2017-09-18 06:00] LABS: HEMATOCRIT 34 % (33-45); HEMOGLOBIN 11.4 g/dL (11.5-14.8); MEAN CORPUSCULAR HEMOGLOBIN 33 PG (26.0-33.0); MEAN CORPUSCULAR HGB CONC 34 g/dl (31.0-36.0); MEAN CORPUSCULAR VOLUME 98 fL (82-100); MONOCYTES # (AUTO) 1.4 /CMM (0.1-1.30); MONOCYTES % (AUTO) 7.3 % (2.0-12.0); NEUTROPHILS # (AUTO) 17.2 /CMM (1.8-8.9); NEUTROPHILS % (AUTO) 87.7 % (43.0-81.0); PLATELET COUNT (AUTO) 328 /CMM (150-450); RDW COEFFICIENT OF VARIATION 13.4 (11.5-15.0); RED BLOOD CELL COUNT(AUTO) 3.45 MIL/uL (4.0-5.2); WHITE BLOOD COUNT (AUTO) 19.6 K/uL (4.3-11.0)
--- NOTE | 2017-09-18 06:00 | NUR ---
accucheck @0600 145. no insulin coverage given at this time due to npo status.
[2017-09-18 06:12] LABS: CALCIUM, SERUM 7.8 mg/dL (8.5-10.1); POTASSIUM 4.2 mmol/L (3.5-5.1)
[2017-09-18] MEDS: MORPHINE SULFATE 30 MG in IV NS 0.9% 28 ML, PCA TOTAL VOLUME 1 BAG IV PRN ×6 (06:29→13:55)
--- NOTE | 2017-09-18 06:30 | NUR ---
RN NOTES STARTED NEW MORPHINE BAG FOR FOREST PATROLMAN PUMP AT 0132. NO BARCODE TO SCAN SINCE THERE WAS NO NEW MORPHINE BAG FOR THE FOREST PATROLMAN PUMP AVAILABLE IN THE [facility] BY PHARMACY.
--- NOTE | 2017-09-18 06:40 | NUR ---
RN CLOSING NOTES NO SIGNIFICANT CHANGES IN Pt's CONDITION DURING THE NIGHT. NO S/S OF ACUTE DISTRESS OR SOB NOTED. Pt REMAINS STABLE AT THIS TIME. ALL NEEDS MET AND ATTENDED TO. SAFETY MEASURES IN PLACE. WILL ENDORSE TO DAYSHIFT RN FOR Pt's SHERMAN.
[2017-09-18 06:59] LABS: LYMPHOCYTES % (MANUAL) 5 % (16-48); MONOCYTES % (MANUAL) 7 % (0-11.0); NEUTROPHILS % (MANUAL) 88 (42-76)
--- NOTE | 2017-09-18 07:25 | NUR ---
RN INITIAL NOTES RECEIVED PATIENT IN BED, ASLEEP BUT EASILY AROUSABLE, NO SOB, BREATHING EVEN AND UNLABORED, RECEIVING O2 VIA NC O2 @ 4LP WITH O2 SAT @ 96%. PATIENT WITH NO C/O PAIN AT THIS TIME, NO SIGNS AND SYMPTOMS OF ACUTE DISTRESS. ALL PATIENT'S NEEDS ATTENDED TO. PLACED CALL LIGHT WITHIN EASY REACH. WILL CONTINUE TO MONITOR PT.
[2017-09-18 08:00] VITALS: BP 138/71
--- NOTE | 2017-09-18 08:00 | NUR ---
RN NOTES INSERTED IV PERIPHERAL LINE ON RH G22, PT TOLERATED WELL. PATENT AND INFUSING IV HYDRATION ORDERED WELL.
[2017-09-18] MEDS: PANTOPRAZOLE 40 MG VIAL IV SCH (08:52)
[2017-09-18] MEDS ORDERED: IV NS 0.9% 1,000 ML IV PRN (11:00)
[2017-09-18] MEDS ORDERED: KEY,NONCONTROL,TO KEEP IN PYXI 1 EA MC ONE ×4 (11:10→21:51)
--- NOTE | 2017-09-18 12:00 | NUR ---
RN NOTE ACCUCHECK DONE, PT WITH BLOOD SUGAR = 123 MG/DL.
--- NOTE | 2017-09-18 13:45 | NUR ---
RN NOTES PT ABLE TO AMBULATE 15 FT WITH WALKER UNDER THE SUPERVISION OF PHYSICAL THERAPIST, WAS ABLE TO BE OUT OF BED AND UP ON CHAIR TOLERATED. SURGICAL INCISION DRESSING CHANGED. KEPT SITE CLEAN AND DRY. CONTINUES TO TOLERATE LIQUID DIET. WILL CONTINUE TO MONITOR.
[2017-09-18 16:00] VITALS: BP 121/64
--- NOTE | 2017-09-18 17:40 | NUR ---
RN NOTE ACCUCHECK DONE, PT WITH BLOOD SUGAR = 143 MG/DL.
--- NOTE | 2017-09-18 18:45 | NUR ---
RN CLOSING NOTES PATIENT IN BED, ASLEEP BUT EASILY AROUSABLE, ALERT AND ORIENTED X 4, NO SOB NOTED, BREATHING EVEN AND UNLABORED, NO C/O PAIN, NO FACIAL GRIMACING, NO SIGNS AND SYMPTOMS OF ACUTE DISTRESS. PT WITH IV PERIPHERAL LINE ON RH G22, INTACT AND PATENT, INFUSING WELL WITH IV HYDRATION ORDERED. CONTINUES TO HAVE ROLF DRAIN ON RIGHT LOWER ABDOMEN , COLOSTOMY DRAIN ON LEFT SIDE OF ABDOMEN. PATIENT CONTINUES TO USE ECHOCARDIOGRAPH TECHNICIAN PUMP FOR PAIN MGT. ALL PATIENT'S NEEDS ATTENDED TO, CALL LIGHT PLACED WITHIN EASY REACH.
--- NOTE | 2017-09-18 19:30 | NUR ---
MS RN OPENING NOTES: PT IS ASLEEP IN BED WITH HIGH GANDHI'S POSITION. PT IS EASILY AROUSABLE TO NAME AND TOUCH. PT IS A/OX3-4. NO SOB NOTED. PT IS ON 4LPM VIA NC AND IS TOLERATING WELL. PT WITH IV ON R HAND #22G AND IS BEING INFUSED WITH IV POTASSIUM CHLORIDE 20MEQ IN IV D5 1/2 NS AT 125ML/HR. PT ALSO ON MORPHINE SULFATE FUSE SPOOLER PUMP WITH FUSE SPOOLER DOSE :1MG, LOCKOUT INTERVAL 8 MINUTES, AND ONE HOUR LIMIT 7. THERE IS 14ML DOSES LEFT. PT HAS ROLF DRAIN ON R LOWER ABDOMEN WITH SEROSANGUINEOUS FLUID DRAINING. PT ALSO HAS COLOSTOMY BAG ON LEFT SIDE OF ABDOMEN. PT ALSO HAS MIDLINE INCISION ON ABDOMEN WITH DRESSING INTACT. WILL CONTINUE TO MONITOR PT.
[2017-09-18 20:00] VITALS: BP 128/78
[2017-09-18] MEDS: FLUCONAZOLE IN NS 100 MG in PREMIX 1 EA IV SCH ×2 (20:17)
[2017-09-18] MEDS: ENOXAPARIN SODIUM 40 MG/0.4 ML DISP.SYRIN SQ SCH (20:18)
[2017-09-19] MEDS: METOCLOPRAMIDE HCL 10 MG/2 ML VIAL IV SCH ×4 (00:41→19:38)
[2017-09-19] MEDS: MORPHINE SULFATE 30 MG in IV NS 0.9% 28 ML, PCA TOTAL VOLUME 1 BAG IV PRN ×3 (01:53)
--- NOTE | 2017-09-19 02:00 | NUR ---
MS RN NOTES: NEW MORPHINE SULFATE PRODUCE MANAGER BAG 30MG IN IV NS WAS STARTED. WITNESSED WITH ANOTHER RN, MANNY PERDOMO. 9 CC WAS WASTED FROM PREVIOUS BAG. WITNESSED BY CHYNA PERDOMO. SIGNED PRODUCE MANAGER FORM. PRODUCE MANAGER DOSE 1 MG, LOCKOUT INTERVAL 8 MINUTES, AND ONE HOUR LIMIT IS 7.
[2017-09-19] MEDS: METRONIDAZOLE 500MG/ NS 100ML 500 MG in PREMIX 1 EA IV SCH ×4 (02:45→20:50)
[2017-09-19] MEDS: BLOOD SUGAR DIAGNOSTIC 1 EACH STRIP IN SCH ×3 (05:09→18:49)
[2017-09-19] MEDS: PIPERACILLIN /TAZOBACTAM 3.375 G in IV D5W 50 ML IV SCH ×3 (05:09→18:48)
[2017-09-19] MEDS: IV D5/0.45 NACL W/20 MEQ KCL 1L IV PRN ×4 (05:46→18:50)
--- NOTE | 2017-09-19 06:50 | NUR ---
MS RN CLOSING NOTES: ALL NEEDS WERE ATTENDED AND ANTICIPATED FOR. PT IS ASLEEP IN BED WITH HIGH GANDHI'S POSITION. PT IS EASILY AROUSABLE TO NAME AND TOUCH. PT IS A/OX3-4. NO SOB NOTED. PT IS ON 4LPM VIA NC AND IS TOLERATING WELL. PT WITH IV ON R HAND #22G AND IS BEING INFUSED WITH IV POTASSIUM CHLORIDE 20MEQ IN IV D5 1/2 NS AT 125ML/HR. PT ALSO ON MORPHINE SULFATE TIMBER RIDER PUMP WITH TIMBER RIDER DOSE :1MG, LOCKOUT INTERVAL 8 MINUTES, AND ONE HOUR LIMIT 7. THERE IS 24ML DOSES LEFT. PT HAS ROLF DRAIN ON R LOWER ABDOMEN WITH SEROSANGUINEOUS FLUID. ROLF OUTPUT WAS 9CC. PT ALSO HAS COLOSTOMY BAG ON LEFT SIDE OF ABDOMEN. PT ALSO HAS MIDLINE INCISION ON ABDOMEN WITH DRESSING INTACT. DRESSING HAS BEEN CHANGED AND REINFORCED. PT ALSO HAS LAI CATH AND IS ATTACHED TO DRAINAGE BAG WITH YELLOW URINE DRAINING. LAI CATH OUTPUT WAS 300CC. WILL ENDORSE TO AM NURSE FOR SHERMAN.
--- NOTE | 2017-09-19 07:10 | NUR ---
RN NOTES: PATIENT RESTING IN BED. NONLABORED BREATHING ON 4L NASAL CANNULA. IV SITE PATENT AND INTACT. NO SIGNS OF DISTRESS. BED IN LOWEST LOCKED POSITION. CALL LIGHT WITHIN REACH. WILL CONTINUE TO MONITOR
[2017-09-19 07:49] LABS: BASOPHILS % (AUTO) 0.1 % (0.0-2.0); EOSINOPHILS % (AUTO) 0.1 % (0.0-6.0); HEMATOCRIT 33 % (33-45); HEMOGLOBIN 11.1 g/dL (11.5-14.8); LYMPHOCYTES # (AUTO) 0.9 /CMM (0.8-4.8); LYMPHOCYTES % (AUTO) 5.8 % (20.0-44.0); MEAN CORPUSCULAR HEMOGLOBIN 33 PG (26.0-33.0); MEAN CORPUSCULAR HGB CONC 34 g/dl (31.0-36.0); MEAN CORPUSCULAR VOLUME 98 fL (82-100); MONOCYTES # (AUTO) 0.3 /CMM (0.1-1.30); NEUTROPHILS # (AUTO) 14.6 /CMM (1.8-8.9); PLATELET COUNT (AUTO) 359 /CMM (150-450); RDW COEFFICIENT OF VARIATION 13.6 (11.5-15.0); RED BLOOD CELL COUNT(AUTO) 3.37 MIL/uL (4.0-5.2); WHITE BLOOD COUNT (AUTO) 15.8 K/uL (4.3-11.0)
[2017-09-19 08:00] VITALS: BP 158/81
[2017-09-19 08:14] LABS: CREATININE 0.7 mg/dL (0.6-1.3); POTASSIUM 4.2 mmol/L (3.5-5.1)
[2017-09-19] MEDS: PANTOPRAZOLE 40 MG VIAL IV SCH (09:15)
--- NOTE | 2017-09-19 10:38 | NUR ---
RN NOTES: LUIS BORGES NP, DISCONTINUED MORPHINE ORDER 2 MG , EVERY 2 HOURS. DISCONTINUED MORPHINE SPEEDER MACHINE OPERATOR WELL
[2017-09-19] MEDS ORDERED: KEY,NONCONTROL,TO KEEP IN PYXI 1 EA MC ONE (11:02)
--- NOTE | 2017-09-19 11:05 | NUR ---
RN NOTES: MACHINE PULLER STOPPED PER LUIS BORGES ORDERS. 7.5 ML WASTED WITH JOAO RIOSROLL SHEETING CUTTER.
[2017-09-19] MEDS: MORPHINE SULFATE INJ 4 MG/ML DISP.SYRIN IV PRN ×3 (12:24→20:58)
[2017-09-19 16:00] VITALS: BP 145/76
--- NOTE | 2017-09-19 19:30 | NUR ---
RN NOTES: PATIENT RESTING IN BED. AOX3. NO SIGNS OF DISTRESS NOTED. IV SITE PATENT AND INTACT. NONLABORED BREATHING NOTED ON 3 L NASAL CANNULA. DURING SHIFT, PATIENT HELPED TO TURN AND REPOSITION. KEPT CLEAN AND DRY. PATIENT AFEBRILE, NO NAUSEA OR VOMITTING NOTED. PATIENT ABLE TO AMBULATE TWICE OUT OF BED AND TO CHAIR WITH GOOD TOLERANCE PER DR GREY'S ORDERS, alternative skin darell on lower pole of the incision removed, darell intact, scant serosanginous drainage noted upon removal, dressing applied, dressing still intact at the moment with no signs of bleeding. PER DR GREY'S ORDERS, ROLF DRAIN TO STAY, PATIENT STILL ON CLEAR DIET. AT THE END OF THE SHIFT, PATIENT ABLE TO PASS GAS, BURP
--- NOTE | 2017-09-19 19:30 | NUR ---
RN OPENING NOTES PATIENT IS IN BED, ALERT AND ORIENTED X3, EASY TO AROUSE. VS STABLE. NO C/O PAIN AT THIS TIME. NO SOB NOTED. RESPIRATIONS EVEN AND UNLABORED. IV ACCESS ON RIGHT HAND PATENT AND INTACT, INFUSING KCL 20 MEQ IN D5, NO REDNESS OR INFILTRATION NOTED. F/C IS IN PLACE, DRAINING ALPESH URINE. SKIN CLEAN AND DRY. ICE PACKS PROVIDED FOR COMFORT. BED IN LOW AND LOCKED POSITION, SIDE RAILSX2. CALL LIGHT WITHIN EASY REACH. WILL CONTINUE TO MONITOR AND ASSESS DURING THE SHIFT.
[2017-09-19] MEDS: FLUCONAZOLE IN NS 100 MG in PREMIX 1 EA IV SCH ×2 (19:54)
[2017-09-19 20:00] VITALS: BP 146/80
[2017-09-19] MEDS: ENOXAPARIN SODIUM 40 MG/0.4 ML DISP.SYRIN SQ SCH (20:49)
[2017-09-20] MEDS: PIPERACILLIN /TAZOBACTAM 3.375 G in IV D5W 50 ML IV SCH ×5 (00:09→23:48)
[2017-09-20] MEDS: BLOOD SUGAR DIAGNOSTIC 1 EACH STRIP IN SCH ×5 (00:12→23:48)
--- NOTE | 2017-09-20 00:38 | NUR ---
RN NOTES BS 103. CONTINUE TO MONITOR.
[2017-09-20] MEDS: METOCLOPRAMIDE HCL 10 MG/2 ML VIAL IV SCH ×4 (01:13→20:03)
[2017-09-20] MEDS: MORPHINE SULFATE INJ 4 MG/ML DISP.SYRIN IV PRN ×5 (01:14→22:39)
[2017-09-20] MEDS: METRONIDAZOLE 500MG/ NS 100ML 500 MG in PREMIX 1 EA IV SCH ×4 (02:53→21:16)
[2017-09-20] MEDS: LORAZEPAM INJ 2 MG/ML VIAL IV PRN ×2 (04:47→13:50)
--- NOTE | 2017-09-20 06:00 | NUR ---
BS 117. CONTINUE TO MONITOR.
--- NOTE | 2017-09-20 06:41 | NUR ---
RN CLOSING NOTES PATIENT IS IN BED, ALERT AND ORIENTED X3, EASY TO AROUSE. VS STABLE. NO SOB NOTED. RESPIRATIONS EVEN AND UNLABORED. IV ACCESS ON RIGHT HAND PATENT AND INTACT, INFUSING KCL 20 MEQ IN D5, NO REDNESS OR INFILTRATION NOTED. F/C IS IN PLACE, DRAINING ALPESH URINE. SKIN CLEAN AND DRY. PATIENT REPOSITIONED AND ICE PACKS PROVIDED FOR COMFORT. ALL NEEDS ARE MET AND MEDICATIONS GIVEN PER MD ORDER. BED IN LOW AND LOCKED POSITION, SIDE RAILSX2. CALL LIGHT WITHIN EASY REACH. WILL ENDORSE TO RN DAY SHIFT FOR CONTINUITY OF CARE.
[2017-09-20 08:00] VITALS: BP 139/73
[2017-09-20] MEDS: PANTOPRAZOLE 40 MG VIAL IV SCH (09:08)
[2017-09-20 11:54] LABS: BASOPHILS % (AUTO) 0.1 % (0.0-2.0); EOSINOPHILS # (AUTO) 0.1 /CMM (0.0-0.7); EOSINOPHILS % (AUTO) 0.3 % (0.0-6.0); HEMATOCRIT 36 % (33-45); HEMOGLOBIN 11.8 g/dL (11.5-14.8); LYMPHOCYTES # (AUTO) 0.7 /CMM (0.8-4.8); LYMPHOCYTES % (AUTO) 3.9 % (20.0-44.0); MEAN CORPUSCULAR HEMOGLOBIN 32 PG (26.0-33.0); MEAN CORPUSCULAR HGB CONC 33 g/dl (31.0-36.0); MEAN CORPUSCULAR VOLUME 97 fL (82-100); MONOCYTES # (AUTO) 0.2 /CMM (0.1-1.30); MONOCYTES % (AUTO) 1.1 % (2.0-12.0); NEUTROPHILS # (AUTO) 15.8 /CMM (1.8-8.9); NEUTROPHILS % (AUTO) 94.6 % (43.0-81.0); PLATELET COUNT (AUTO) 487 /CMM (150-450); RDW COEFFICIENT OF VARIATION 13.5 (11.5-15.0); RED BLOOD CELL COUNT(AUTO) 3.68 MIL/uL (4.0-5.2); WHITE BLOOD COUNT (AUTO) 16.7 K/uL (4.3-11.0)
[2017-09-20 16:00] VITALS: BP 149/75
[2017-09-20 16:28] LABS: APPEARANCE,URINE TURBID (CLEAR); BILIRUBIN,URINE 1+ (NEGATIVE); BLOOD, URINE 2+ Ery/uL (NEGATIVE); COLOR,URINE DARK YELLO (YELLOW); KETONES,URINE 1+ (NEGATIVE); LEUKOCYTE ESTERASE ,URINE NEGATIVE (NEGATIVE); NITRITE, URINE POSITIVE (NEGATIVE); PROTEIN,URINE TRACE mg/dl (NEGATIVE); UGLUCOSE NEGATIVE (NEGATIVE); UROBILINOGEN,URINE 0.2 EU/dL (0.2)
[2017-09-20 16:44] LABS: BACTERIA,URINE 2+ /HPF (None Seen); SQUAMOUS EPITHELIAL CELL,UR None Seen /HPF (None Seen); URINE AMORPHOUS PHOSPHATES Many /HPF (None Seen); WBC,URINE 0-2 /HPF (0-3)
[2017-09-20] MEDS: IV D5/0.45 NACL W/20 MEQ KCL 1L IV PRN ×2 (18:36)
--- NOTE | 2017-09-20 19:09 | NUR ---
RN Notes on bed alert and oriented. Brother at the bedside. Will slept at intervals. no complain at this time. Needs anticipated. No untoward symptom noted within the shift. Will endorse to customer complaint service supervisor nurse for continuity of care.
--- NOTE | 2017-09-20 19:40 | NUR ---
MS RN OPENING NOTES PT AWAKE,RESPIRATIONS EVEN, UNLABORED,NO APPARENT DISTRESS NOTED.DENIES ANY PAIN OR DISCOMFORT AT THIS TIME. IV SITE RT HAND INTACT, PATENT NO S/SX OF INFILTRATION NOTED. F/C IN PLACE DRAINING ALPESH COLOR URINE. CALL LIGHT WITHIN REACH. KEPT CLEAN AND COMFORTABLE, ATTENDED ALL NEEDS.WILL CONTINUE TO MONITOR ACCORDINGLY.
[2017-09-20 20:00] VITALS: BP 148/76
[2017-09-20] MEDS: FLUCONAZOLE IN NS 100 MG in PREMIX 1 EA IV SCH ×2 (20:03)
[2017-09-20] MEDS: ENOXAPARIN SODIUM 40 MG/0.4 ML DISP.SYRIN SQ SCH (21:15)
[2017-09-20 22:00] VITALS: BP 140/76
--- NOTE | 2017-09-20 22:40 | NUR ---
MS RN NOTE PT COMPLAINED OF PAIN.ADMINISTERED MORPHINE 4MG ORDERED PRN WILL CONTINUE TO MONITOR
--- NOTE | 2017-09-21 | NUR ---
MS RN NOTE BLOOD GLUCOSE CHECKED 151, WILL CONTINUE TO MONITOR
[2017-09-21] MEDS: METOCLOPRAMIDE HCL 10 MG/2 ML VIAL IV SCH ×4 (01:05→20:05)
[2017-09-21] MEDS: IV D5/0.45 NACL W/20 MEQ KCL 1L IV PRN ×6 (02:11→22:52)
[2017-09-21] MEDS: LORAZEPAM INJ 2 MG/ML VIAL IV PRN ×3 (02:11→23:43)
[2017-09-21] MEDS: METRONIDAZOLE 500MG/ NS 100ML 500 MG in PREMIX 1 EA IV SCH ×4 (03:29→21:48)
[2017-09-21] MEDS: PIPERACILLIN /TAZOBACTAM 3.375 G in IV D5W 50 ML IV SCH ×4 (05:19→23:21)
[2017-09-21] MEDS: MORPHINE SULFATE INJ 4 MG/ML DISP.SYRIN IV PRN ×4 (05:19→20:05)
[2017-09-21] MEDS: BLOOD SUGAR DIAGNOSTIC 1 EACH STRIP IN SCH ×4 (06:12→23:43)
--- NOTE | 2017-09-21 06:31 | NUR ---
MS RN CLOSING NOTES PT IN BED ASLEEP,RESPIRATIONS EVEN,UNLABORED,NO SOB,NO APPARENT DISTRESS NOTED. BLOOD GLUCOSE 151.F/C DISCONTINUED,PT TOLERATED WELL NOTED WITH 1100 ML ALPESH COLOR URINE. NO S/SX OF PAIN OR DISCOMFORT AT THIS TIME. ROLF DRAIN 10 ML OUTPUT NOTED. IV SITE INTACT,PATENT,NO S/SX OF INFILTRATION NOTED.CALL LIGHT WITHIN REACH.WILL CONTINUE TO MONITOR ACCORDINGLY
[2017-09-21 07:37] LABS: BASOPHILS % (AUTO) 0.2 % (0.0-2.0); HEMATOCRIT 34 % (33-45); HEMOGLOBIN 11.2 g/dL (11.5-14.8); LYMPHOCYTES # (AUTO) 0.6 /CMM (0.8-4.8); LYMPHOCYTES % (AUTO) 3.8 % (20.0-44.0); MEAN CORPUSCULAR HEMOGLOBIN 32 PG (26.0-33.0); MEAN CORPUSCULAR HGB CONC 33 g/dl (31.0-36.0); MEAN CORPUSCULAR VOLUME 97 fL (82-100); MONOCYTES # (AUTO) 0.6 /CMM (0.1-1.30); MONOCYTES % (AUTO) 3.4 % (2.0-12.0); NEUTROPHILS % (AUTO) 92.6 % (43.0-81.0); PLATELET COUNT (AUTO) 459 /CMM (150-450); RDW COEFFICIENT OF VARIATION 13.2 (11.5-15.0); WHITE BLOOD COUNT (AUTO) 17.2 K/uL (4.3-11.0)
[2017-09-21 07:53] LABS: CALCIUM, SERUM 7.9 mg/dL (8.5-10.1); CREATININE 0.6 mg/dL (0.6-1.3); POTASSIUM 3.7 mmol/L (3.5-5.1)
--- NOTE | 2017-09-21 07:59 | NUR ---
RN MS INITIAL NOTES Received pt in bed w/ HOB elevated. a/o x4, respirations are even and unlabored, not in any acute distress noted. C/o of pain 05/15 d/t s/p hemicolectomy, alternative measures provided by repositioning to patient's comfort level and will administer scheduled medications. Michelle to abdominal midline incision noted with no s/sx of infection. Reminded pt to use call light when assistance is needed. Will continue to monitor during shift.
[2017-09-21 08:00] VITALS: BP 146/88
[2017-09-21] MEDS: PANTOPRAZOLE 40 MG VIAL IV SCH (09:13)
[2017-09-21] MEDS ORDERED: FLUTICASONE PROPIONATE 16 GM BOTTLE NS PRN (10:30)
[2017-09-21] MEDS ORDERED: buPROPion SR 150 MG TABLET.ER PO SCH (10:30)
[2017-09-21] MEDS ORDERED: ESCITALOPRAM OXALATE (10 MG) 10 MG TABLET PO SCH (10:30)
[2017-09-21 16:00] VITALS: BP 151/87
[2017-09-21] MEDS: DULOXETINE HCL 30 MG CAPSULE.DR PO SCH (16:03)
--- NOTE | 2017-09-21 19:08 | NUR ---
RN MS CLOSING NOTES A/o x4, respirations are even and unlabored, not in any acute distress noted. Alternative measures provided by repositioning to patient's comfort level and administered scheduled medications. No s/sx of infection noted to midline incision. Reminded pt to use call light when assistance is needed. Endorsed to next shift for continuity of care.
--- NOTE | 2017-09-21 19:30 | NUR ---
MS RN OPENING NOTES: RECEIVED PT AWAKE AND WITH FAMILY MEMBER, AT BEDSIDE. PT IS A/OX4. PT IN HIGH GANDHI'S POSITION. NO SOB NOTED. PT ON 2LPM VIA NC AND IS TOLERATING WELL. PT COMPLAINING OF AB PAIN 04/14. INFORMED PT THAT THE NEXT ONE IS AT 2003 FOR THE MORPHINE. PT HAS IV ON ON R WRIST #22G AND IS BEING INFUSED WITH KCL 20MEQ WITH D5 1/2 NS AT 125ML/HR. PT HAS ROLF DRAIN WITH DARK BROWN LIKE FLUID DRAINING. PT ALSO HAS A COLOSTOMY BAG. PT HAS A DRESSING OVER MIDLINE INCISION. CALL LIGHT WITHIN PT'S REACH. BED KEPT IN LOW, LOCKED POSITION, AND SIDE RAILS X 2 UP. WILL CONTINUE TO MONITOR PT.
[2017-09-21 20:00] VITALS: BP 141/77
--- NOTE | 2017-09-21 20:12 | NUR ---
MS RN NOTES: PT COMPLAINING OF 8/10 AB PAIN. PT WAS ADMINISTERED MORPHINE 4MG IV. WILL CONTINUE TO MONITOR PT.
[2017-09-21] MEDS: FLUCONAZOLE IN NS 100 MG in PREMIX 1 EA IV SCH ×2 (20:27)
[2017-09-21] MEDS: ENOXAPARIN SODIUM 40 MG/0.4 ML DISP.SYRIN SQ SCH (21:49)
[2017-09-21] MEDS ORDERED: IV PREMIX D5 1/2NS + KCL 1,000 ML IV ONE (22:36)
--- NOTE | 2017-09-21 22:52 | NUR ---
MS RN NOTES: POTASSIUM CHLORIDE 20MEQ IN IV D5 1/2 NS WAS BROUGHT UP BY ETL ANALYST. HAD TO MANUALLY ADMINISTER SINCE BAR GUN WON'T SCAN IV.
--- NOTE | 2017-09-21 23:43 | NUR ---
MS RN NOTES: PT VERBALIZED THAT SHE IS HAVING ANXIETY AND REQUESTING FOR HER ATIVAN. PT WAS ADMINISTERED ATIVAN VIA IV. WILL CONTINUE TO MONITOR PT.
[2017-09-22] MEDS: MORPHINE SULFATE INJ 4 MG/ML DISP.SYRIN IV PRN ×5 (00:10→20:33)
--- NOTE | 2017-09-22 00:13 | NUR ---
MS RN NOTES: PT COMPLAINING OF 7/10 ABDOMINAL PAIN. PT WAS ADMINISTERED MORPHINE VIA IV. WILL CONTINUE TO MONITOR PT.
[2017-09-22] MEDS: METOCLOPRAMIDE HCL 10 MG/2 ML VIAL IV SCH ×4 (00:47→20:33)
[2017-09-22] MEDS: METRONIDAZOLE 500MG/ NS 100ML 500 MG in PREMIX 1 EA IV SCH ×4 (02:23→21:31)
[2017-09-22] MEDS: PIPERACILLIN /TAZOBACTAM 3.375 G in IV D5W 50 ML IV SCH ×4 (05:00→23:50)
[2017-09-22] MEDS: BLOOD SUGAR DIAGNOSTIC 1 EACH STRIP IN SCH ×4 (05:00→23:49)
--- NOTE | 2017-09-22 06:44 | NUR ---
MS RN CLOSING NOTES: ALL NEEDS WERE ATTENDED AND ANTICIPATED FOR. PT IS IN SEMI-GANDHI'S POSITION AND RESTING IN BED. PT IS A/OX4. NO SOB NOTED. PT ON 2LPM VIA NC AND IS TOLERATING WELL. PT HAS IV ON ON R WRIST #22G AND IS BEING INFUSED WITH KCL 20MEQ WITH D5 1/2 NS AT 125ML/HR. PT HAS ROLF DRAIN WITH DARK BROWN LIKE FLUID DRAINING. OUTPUT WAS 8CC. PT ALSO HAS A COLOSTOMY BAG. COLOSTOMY BAG HAS BEEN CHANGED THIS AM. PT HAS A DRESSING OVER MIDLINE INCISION AND HAS BEEN CHANGED WELL THIS AM. CALL LIGHT WITHIN PT'S REACH. BED KEPT IN LOW, LOCKED POSITION, AND SIDE RAILS X 2 UP. WILL ENDORSE TO AM NURSE FOR SHERMAN.
[2017-09-22 07:00] LABS: EOSINOPHILS # (AUTO) 0.1 /CMM (0.0-0.7); EOSINOPHILS % (AUTO) 0.4 % (0.0-6.0); HEMATOCRIT 32 % (33-45); HEMOGLOBIN 10.6 g/dL (11.5-14.8); LYMPHOCYTES # (AUTO) 0.6 /CMM (0.8-4.8); MEAN CORPUSCULAR HEMOGLOBIN 32 PG (26.0-33.0); MEAN CORPUSCULAR HGB CONC 34 g/dl (31.0-36.0); MEAN CORPUSCULAR VOLUME 96 fL (82-100); MONOCYTES # (AUTO) 0.4 /CMM (0.1-1.30); MONOCYTES % (AUTO) 2.6 % (2.0-12.0); PLATELET COUNT (AUTO) 440 /CMM (150-450); RDW COEFFICIENT OF VARIATION 13.5 (11.5-15.0); RED BLOOD CELL COUNT(AUTO) 3.29 MIL/uL (4.0-5.2)
--- NOTE | 2017-09-22 07:30 | NUR ---
MS RN OPENING NOTES RECEIVED PATIENT IN SEMI-GANDHI'S POSITION AND RESTING IN BED, A/OX4. NO ACUTE DISTRESS, NO SOB NOTED. PT ON 2LPM VIA NC AND IS TOLERATING WELL. IV SITE ON R WRIST #22G AND IS BEING INFUSED WITH KCL 20MEQ WITH D5 1/2 NS AT 125ML/HR. PATIENT HAS ROLF DRAIN, INTACT AND IN PLACE. COLOSTOMY BAG IN PLACE, BAG HAS BEEN CHANGED THIS AM. PATIENT HAS A DRESSING OVER MIDLINE INCISION AND HAS BEEN CHANGED WELL THIS AM. CALL LIGHT WITHIN REACH. BED KEPT IN LOW, LOCKED POSITION, AND SIDE RAILS X 2 UP. WILL CONTINUE TO MONITOR ACCORDINGLY.
[2017-09-22 07:52] LABS: CALCIUM, SERUM 7.8 mg/dL (8.5-10.1); CREATININE 0.6 mg/dL (0.6-1.3); POTASSIUM 4.1 mmol/L (3.5-5.1)
[2017-09-22 08:00] VITALS: BP 150/79
[2017-09-22] MEDS: buPROPion SR 150 MG TABLET.ER PO SCH (08:44)
[2017-09-22] MEDS: DULOXETINE HCL 30 MG CAPSULE.DR PO SCH (08:44)
[2017-09-22] MEDS: PANTOPRAZOLE 40 MG VIAL IV SCH (08:45)
--- NOTE | 2017-09-22 10:10 | NUR ---
WOUND CARE CONSULT: PT PRESENTS WITH ABILITY TO REPOSITION HERSELF IN BED. PT HAS COLOSTOMY WHICH IS PATENT WITH DARK BROWN STOOL. PT NOTED TO HAVE ROLF DRAIN WITH SMALL AMOUNT OF RED DRAINAGE AND MIDLINE ABDOMINAL INCISION WITH REID WHICH HAS SCANT WEEPING OF PINK DRAINAGE FROM LOWER PORTION OF INCISION. NURSING STAFF PROTECTING AREA WITH ABD PAD. DEFER TO SURGEON FOR SURGICAL SITES. DISCUSSED SKIN PROTECTION WITH NURSING STAFF. WILL SEE PRN. BARKER IN AGREEMENT WITH PLAN OF CARE.
--- NOTE | 2017-09-22 12:14 | NUR ---
RN NOTES DR GREY AT BEDSIDE, REMOVED ROLF DRAIN. COVERED WITH GAUZED AND TAPED. PER DR GREY, CONSULT WITH ENTEROSTOMAL THERAPIST.
--- NOTE | 2017-09-22 12:17 | NUR ---
RN NOTES TALKED TO DATABASE ADMINISTRATION ASSOCIATE AND ASK HOW TO CONTACT ENTEROSTOMAL THERAPIST. PER DATABASE ADMINISTRATION ASSOCIATE, CONTACT WOUND NURSE, MIR. PER WOUND NURSE MIR, NO ENTEROSTOMAL THERAPIST AVAILABLE FOR NOW, PATIENT CAN BE SEEN BY ENTEROSTOMAL THERAPIST THRU HOME HEALTH.
[2017-09-22] MEDS: FENTANYL PF 100MCG/2ML AMPUL IV PRN (12:55)
[2017-09-22 16:00] VITALS: BP 146/86
--- NOTE | 2017-09-22 19:30 | NUR ---
MS RN OPENING NOTES: RECEIVED PT RESTING IN BED IN SEMI-GANDHI'S POSITION. PT IS A/OX4. PT HAS IV ON R WRIST #22G AND HAS BEEN FLUSHED. IV IS PATENT AND INTACT. NO SOB NOTED. PT ON 2LPM VIA NC AND IS TOLERATING WELL. COLOSTOMY BAG NOTED WITH SOFT, BROWN, LIQUIDY STOOL. MIDLINE INCISION IN ABDOMEN NOTED WITH REID. WILL NEED TO APPLY DRESSING TO COVER. BEDSIDE COMMODE MADE AVAILABLE. WALKER AT BEDSIDE. CALL LIGHT WITHIN PT'S REACH. BED KEPT IN LOW, LOCKED POSITION, AND SIDE RAILS X 2UP. WILL CONTINUE TO MONITOR PT.
--- NOTE | 2017-09-22 19:30 | NUR ---
RN CLOSING NOTES PATIENT IN BED RESTING. NO SIGNIFICANT CHANGE IN PATIENT'S CONDITION. NO ACUTE DISTRESS, NO SOB NOTED. ALL NEEDS ATTENDED AND PROVIDED. KEPT PATIENT SAFE AND COMFORTABLE. BED IN LOW, LOCKED POSITION, SIDERAILS UPX2. CALL LIGHT IN REACH. ENDORSED TO NIGHT RN FOR SHERMAN.
[2017-09-22 20:00] VITALS: BP 145/77
[2017-09-22] MEDS: FLUCONAZOLE IN NS 100 MG in PREMIX 1 EA IV SCH ×2 (20:34)
[2017-09-22] MEDS: ENOXAPARIN SODIUM 40 MG/0.4 ML DISP.SYRIN SQ SCH (20:46)
[2017-09-23] MEDS: MORPHINE SULFATE INJ 4 MG/ML DISP.SYRIN IV PRN ×5 (00:35→21:53)
[2017-09-23] MEDS: METOCLOPRAMIDE HCL 10 MG/2 ML VIAL IV SCH ×4 (00:35→20:42)
[2017-09-23] MEDS: METRONIDAZOLE 500MG/ NS 100ML 500 MG in PREMIX 1 EA IV SCH ×4 (02:05→21:53)
[2017-09-23] MEDS: BLOOD SUGAR DIAGNOSTIC 1 EACH STRIP IN SCH ×4 (05:20→23:44)
[2017-09-23] MEDS: PIPERACILLIN /TAZOBACTAM 3.375 G in IV D5W 50 ML IV SCH ×4 (05:20→23:44)
--- NOTE | 2017-09-23 07:36 | NUR ---
RN OPENING NOTES RECEIVED PATIENT SITTING UP IN BED IN SEMI-GANDHI'S POSITION. LEGS ELEVATED. PATIENT IS A/OX4. IV ON R WRIST #22G, PATENT AND INTACT. NO SOB NOTED, ON 2LPM VIA NC AND IS TOLERATING WELL. COLOSTOMY BAG IN PLACE. MIDLINE INCISION IN ABDOMEN NOTED WITH REID AND DRESSING APPLIED. BEDSIDE COMMODE MADE AVAILABLE. WALKER AT BEDSIDE. CALL LIGHT WITHIN REACH. BED KEPT IN LOW, LOCKED POSITION, AND SIDE RAILS X 2UP. WILL CONTINUE TO MONITOR ACCORDINGLY.
--- NOTE | 2017-09-23 07:38 | NUR ---
MS RN CLOSING NOTES: ALL NEEDS WERE ATTENDED AND ANTICIPATED FOR. PT IS SITTING UP IN BED IN SEMI-GANDHI'S POSITION. LEGS ELEVATED. PT IS A/OX4. PT HAS IV ON R WRIST #22G AND HAS BEEN FLUSHED. IV IS PATENT AND INTACT. PT CURRENTLY S/L. NO SOB NOTED. PT ON 2LPM VIA NC AND IS TOLERATING WELL. COLOSTOMY BAG CHANGED. MIDLINE INCISION IN ABDOMEN NOTED WITH REID AND DRESSING APPLIED. BEDSIDE COMMODE MADE AVAILABLE. WALKER AT BEDSIDE. CALL LIGHT WITHIN PT'S REACH. BED KEPT IN LOW, LOCKED POSITION, AND SIDE RAILS X 2UP. ENDORSED TO AM NURSE FOR SHERMAN.
[2017-09-23 07:48] LABS: EOSINOPHILS % (AUTO) 0.2 % (0.0-6.0); HEMATOCRIT 33 % (33-45); HEMOGLOBIN 11.1 g/dL (11.5-14.8); LYMPHOCYTES # (AUTO) 0.6 /CMM (0.8-4.8); LYMPHOCYTES % (AUTO) 4.6 % (20.0-44.0); MEAN CORPUSCULAR HEMOGLOBIN 32 PG (26.0-33.0); MEAN CORPUSCULAR HGB CONC 34 g/dl (31.0-36.0); MEAN CORPUSCULAR VOLUME 96 fL (82-100); MONOCYTES # (AUTO) 0.6 /CMM (0.1-1.30); MONOCYTES % (AUTO) 4.4 % (2.0-12.0); NEUTROPHILS # (AUTO) 11.6 /CMM (1.8-8.9); NEUTROPHILS % (AUTO) 90.8 % (43.0-81.0); PLATELET COUNT (AUTO) 515 /CMM (150-450); RDW COEFFICIENT OF VARIATION 13.6 (11.5-15.0); RED BLOOD CELL COUNT(AUTO) 3.44 MIL/uL (4.0-5.2); WHITE BLOOD COUNT (AUTO) 12.7 K/uL (4.3-11.0)
[2017-09-23 08:00] VITALS: BP 147/83
[2017-09-23 08:09] LABS: CREATININE 0.5 mg/dL (0.6-1.3); POTASSIUM 3.9 mmol/L (3.5-5.1)
[2017-09-23] MEDS: buPROPion SR 150 MG TABLET.ER PO SCH (09:02)
[2017-09-23] MEDS: PANTOPRAZOLE 40 MG VIAL IV SCH (09:03)
[2017-09-23] MEDS: DULOXETINE HCL 30 MG CAPSULE.DR PO SCH (09:03)
[2017-09-23] MEDS: FENTANYL PF 100MCG/2ML AMPUL IV PRN (12:14)
[2017-09-23 16:00] VITALS: BP 143/62
--- NOTE | 2017-09-23 19:20 | NUR ---
RN CLOSING NOTES PATIENT IN BED RESTING. NO ACUTE DISTRESS, NO SOB NOTED. ALL NEEDS ATTENDED AND PROVIDED. COLOSTOMY BAG CHANGED X1 IN THE SHIFT. ABDOMINAL DRESSING KEPT CLEAN AND DRY, CHANGED DRESSING PRN. WALKED WITH PT TODAY, TOLERATED WELL. PATIENT AWAITING FOR DISCHARGE. KEPT PATIENT SAFE AND COMFORTABLE. BED IN LOCKED, LOW POSITION, SIDERAILS UPX2. CALL LIGHT IN REACH. ENDORSED TO NIGHT RN FOR SHERMAN.
--- NOTE | 2017-09-23 19:40 | NUR ---
MS RN NOTE: PATIENT RESTING IN BED, NO ACUTE DISTRESS NOTED. BREATHING EVEN AND UNLABORED, NO SOB NOTED. IV TO RIGHT WRIST IN PLACE. DRESSING TO ABDOMEN CLEAN AND IN PLACE. COLOSTOMY EMPTY AT THIS TIME, CLEAN AND IN PLACE. NO S/S OF HYPER/HYPOGLYCEMIA NOTED. BED LOCKED AND IN LOWEST POSITION, CALL LIGHT IN REACH. WILL CONTINUE TO MONITOR.
[2017-09-23 20:00] VITALS: BP 130/73
[2017-09-23] MEDS: FLUCONAZOLE IN NS 100 MG in PREMIX 1 EA IV SCH ×2 (20:42)
[2017-09-23] MEDS: ENOXAPARIN SODIUM 40 MG/0.4 ML DISP.SYRIN SQ SCH (20:43)
--- NOTE | 2017-09-23 22:15 | NUR ---
MS RN NOTE: PATIENT COMPLAINS OF PAIN TO ABDOMEM 05/15, MORPHINE 4MG IV GIVEN PER MD ORDER. WILL CONTINUE TO MONITOR.
--- NOTE | 2017-09-24 00:15 | NUR ---
MS RN NOTE: PATIENT BLOOD SUGAR LEVEL 125MG/DL, NO INSULIN NEEDED PER SLIDING SCALE. NO S/S OF HYPER/HYPOGLYCEMIA NOTED. WILL CONTINUE TO MONITOR.
[2017-09-24] MEDS: METOCLOPRAMIDE HCL 10 MG/2 ML VIAL IV SCH ×4 (00:42→19:59)
[2017-09-24] MEDS: METRONIDAZOLE 500MG/ NS 100ML 500 MG in PREMIX 1 EA IV SCH ×3 (03:39→16:48)
--- NOTE | 2017-09-24 03:45 | NUR ---
MS RN NOTE: PATIENT IV TO RIGHT WRIST KEEPS BEEPING IV PUMP, NEW IV ALSO STARTED TO RAC #[address] WILL CONTINUE TO MONITOR.
[2017-09-24] MEDS: PIPERACILLIN /TAZOBACTAM 3.375 G in IV D5W 50 ML IV SCH ×3 (05:43→17:18)
[2017-09-24] MEDS: BLOOD SUGAR DIAGNOSTIC 1 EACH STRIP IN SCH ×3 (05:50→17:18)
--- NOTE | 2017-09-24 06:20 | NUR ---
MS RN NOTE: PATIENT RESTING IN BED, NO ACUTE DISTRESS NOTED. BREATHING EVEN AND UNLABORED, NO SOB NOTED. IV TO RIGHT WRIST IN PLACE. DRESSING TO ABDOMEN CLEAN AND IN PLACE. COLOSTOMY EMPTIED WITH 60ML OF BROWN LIQUID STOOL. PATIENT BLOOD SUGAR LEVEL 102 MG/DL, NO INSULIN NEEDED PER SLIDING SCALE NO S/S OF HYPER/HYPOGLYCEMIA NOTED. BED LOCKED AND IN LOWEST POSITION, CALL LIGHT IN REACH. WILL ENDORSE TO DAY NURSE TO CONTINUE WITH PLAN OF CARE.
--- NOTE | 2017-09-24 07:45 | NUR ---
MS RN NOTE: PATIENT FOUND ON FLOOR, PATIENT UNABLE TO MOVE RIGHT LEG/HIP WITH PAIN 9/10. ASSISTED PATIENT UP TO CHAIR. PATIENT ABLE TO MOVE ALL OTHER EXTREMITIES WITHOUT COMPLICATIONS. PATIENT DENIES HITTING HEAD OR PAIN TO HEAD. CALLED COLOR WORKER MD, SPOKE TO DAREN FRANKS RECEIVED ORDER FOR STAT X RAY OF RIGHT LEG/HIP. WILL ENDORSE TO DAY NURSE.
[2017-09-24 08:00] VITALS: BP 122/68
--- NOTE | 2017-09-24 08:00 | NUR ---
MS RN OPENING NOTE PATIENT IS ALERT AND ORIENTED X3. PATIENT STATING 10/10 PAIN ON RIGHT HIP. S/P FALL THIS MORNING, FOUND ON THE FLOOR. CALL LIGHT WITHIN REACH. SAFETY MEASURES IMPLEMENTED. IV INTACT AND PATENT, NO FLUIDS RUNNING AT THIS TIME. AWAITING TO SEE WHEN SCHEDULED SURGERY WILL HAPPEN. BLOOD SUGARS TO BE MONITORED THROUGHOUT SHIFT. WILL CONTINUE TO MONITOR PATIENT
[2017-09-24] MEDS: buPROPion SR 150 MG TABLET.ER PO SCH (09:00)
[2017-09-24] MEDS: DULOXETINE HCL 30 MG CAPSULE.DR PO SCH (09:00)
[2017-09-24] MEDS: MORPHINE SULFATE INJ 4 MG/ML DISP.SYRIN IV PRN ×3 (09:52→23:06)
[2017-09-24] MEDS: PANTOPRAZOLE 40 MG VIAL IV SCH (09:53)
[2017-09-24] MEDS: POTASSIUM CHLORIDE 20 MEQ TAB.PRT.SR PO SCH ×2 (10:00→11:00)
[2017-09-24] MEDS: FUROSEMIDE 40 MG/4 ML VIAL IV SCH ×2 (10:32→13:53)
--- NOTE | 2017-09-24 11:16 | NUR ---
MS RN NOTE PER CHRISTOPHER, PATIENT IS SCHEDULED FOR SURGERY TOMORROW 09/25/17 AT 0730.
[2017-09-24 11:37] LABS: BASOPHILS % (AUTO) 0.1 % (0.0-2.0); HEMATOCRIT 30 % (33-45); HEMOGLOBIN 9.9 g/dL (11.5-14.8); LYMPHOCYTES # (AUTO) 0.3 /CMM (0.8-4.8); LYMPHOCYTES % (AUTO) 1.7 % (20.0-44.0); MEAN CORPUSCULAR HEMOGLOBIN 32 PG (26.0-33.0); MEAN CORPUSCULAR HGB CONC 33 g/dl (31.0-36.0); MEAN CORPUSCULAR VOLUME 97 fL (82-100); MONOCYTES # (AUTO) 0.5 /CMM (0.1-1.30); MONOCYTES % (AUTO) 2.6 % (2.0-12.0); NEUTROPHILS # (AUTO) 17.9 /CMM (1.8-8.9); NEUTROPHILS % (AUTO) 95.6 % (43.0-81.0); PLATELET COUNT (AUTO) 588 /CMM (150-450); RDW COEFFICIENT OF VARIATION 13.9 (11.5-15.0); RED BLOOD CELL COUNT(AUTO) 3.14 MIL/uL (4.0-5.2); WHITE BLOOD COUNT (AUTO) 18.8 K/uL (4.3-11.0)
[2017-09-24 12:18] LABS: CALCIUM, SERUM 7.7 mg/dL (8.5-10.1); CREATININE 0.4 mg/dL (0.6-1.3); POTASSIUM 3.7 mmol/L (3.5-5.1)
[2017-09-24 12:23] LABS: ALBUMIN 1.6 g/dL (3.4-5.0); BILIRUBIN,TOTAL 0.4 mg/dL (0.2-1.0)
[2017-09-24 12:46] LABS: BAND % (MANUAL) 1 % (0.0-5.0); LYMPHOCYTES % (MANUAL) 5 % (16-48); NEUTROPHILS % (MANUAL) 94 (42-76)
--- NOTE | 2017-09-24 14:00 | NUR ---
MS RN NOTE ORDER TO INSERT LAI. ATTEMPTED TO INSERT LAI, PATIENT IS IN SEVERE PAIN, PAIN MEDICATION GIVEN PRIOR TO LAI INSERTION DUE TO POSITION. WILL NOTIFY EQUAL OPPORTUNITY ASSISTANT TO TRY REINSERTING LAI LATER TONIGHT
[2017-09-24 16:00] VITALS: BP 121/78
--- NOTE | 2017-09-24 18:39 | NUR ---
MS RN CLOSING NOTE PATIENT IS ALERT AND ORIENTED X3. NO COMPLAINTS OF PAIN AT THIS TIME. NO SOB OR DISTRESS NOTED. CALL LIGHT WITHIN REACH AT ALL TIMES. SAFETY MEASURES IMPLEMENTED. ABLE TO COMMUNICATE NEEDS. ALL DUE MEDICATION GIVEN ORDERED. ALL NURSING CARE NEEDS ATTENDED TO NEEDED. LAI CATHETER INSERTED AT 1600, NO COMPLICATIONS. URINATING WELL, CLEAR AND YELLOW. PATIENT HAS RIGHT HIP FRACTURE WILL GO FOR SURGERY TOMORROW 09/25/17 FOR RIGHT HIP INTRAMEDULLARY RODDING. NPO AT MIDNIGHT. IV INTACT AND PATENT NO REDNESS OR SWELLING NOTED. ON STRICT INTAKE AND OUTPUT. HAS ABDOMINALL MIDLINE INCISION WITH REID, DRESSING CHANGED. BLOOD SUGAR MONITORED, NO INSULIN NEEDED. CONSENTS OBTAINED AND PLACED IN CHART. WILL ENDORSE TO ROVING INSPECTOR NURSE FOR SHERMAN
[2017-09-24 19:11] LABS: INR 1.13 (0.87-1.13); PROTHROMBIN TIME 11.8 SECS (9.5-12.7)
--- NOTE | 2017-09-24 19:30 | NUR ---
RN OPENING NOTES PATIENT IS INN BED, ALERT AND ORIENTED X3.VS STABLE. NO C/O PAIN AT THIS TIME. NO SOB NOTED. RESPIRATIONS EVEN AND UNLABORED. IV ACCESS ON RIGHT WRIST PATENT AND INTACT, NO REDNESS OR INFILTRATION NOTED. LAI CATHETER IS IN PLACE, DRAINING CLEAR AND YELLOW URINE. PATIENT IS NPO AT MIDNIGHT DUE TO RIGHT HIP INTRAMEDULLARY RODDING 09/25/17 AT 07:30 AM. CONSENT SIGNED. DRESSING IS INTACT, SKIN CLEAN AND DRY. BED IN LOW AND LOCKED POSITION, SIDE RAILSX2. CALL LIGHT WITHIN EASY REACH. WILL CONTINUE TO MONITOR AND ASSESS DURING THE SHIFT.
[2017-09-24 20:00] VITALS: BP 113/60
[2017-09-24] MEDS: FLUCONAZOLE IN NS 100 MG in PREMIX 1 EA IV SCH ×2 (20:00)
[2017-09-24] MEDS: CEFTRIAXONE 1 G in IV D5W 50 ML IV SCH (21:14)
--- NOTE | 2017-09-24 21:43 | NUR ---
MS/RN NOTES PATIENT IS ALERT, ORIENTED X3, ABLE TO VERBALIZE NEEDS, REPORT GIVEN BY NURSE CALDERA FOR SHERMAN.PATIENT S/P FALL THIS AM AND WITH PROCEDURE IN AM FOR SURGERY , NPO BY MIDNIGHT, WILL ATTEND TO NEEDS, ON LAI CATHETHER, COLOSTOMY BAG.RIGHT AC GAUGE 22 W/ NO S/S OF INFILTRATION. CONSENT HAS BEEN SIGNED WILL MONITOR PAIN LEVEL. WILL F/U REGARDING PATIENT FAMILY CONCERN REGARDING SEDATION DURING SURGERY. W, CALL LIGHTS WITHIN REACH. BED ALARM ON.
--- NOTE | 2017-09-24 23:03 | NUR ---
MS/RN NOTES PATIENT REPORTED PAIN LEVEL 8/10 ON RIGHT HIP, MORPHINE IVP GIVEN NEEDED WITH PRESCRIBED DOSE PER MD,. B/P CHECK AT 127/67, RESPIRATIONS EVEN AND UNLABORED. ALERT, ORIENTED X3.
[2017-09-25] MEDS: BLOOD SUGAR DIAGNOSTIC 1 EACH STRIP IN SCH ×5 (00:23→23:24)
[2017-09-25] MEDS: METOCLOPRAMIDE HCL 10 MG/2 ML VIAL IV SCH ×4 (02:01→20:35)
[2017-09-25] MEDS: MORPHINE SULFATE INJ 4 MG/ML DISP.SYRIN IV PRN ×3 (03:53→16:56)
--- NOTE | 2017-09-25 06:42 | NUR ---
323-2 ms/rn notes Patient able to sleep during the night, alert, oriented x3. respiration even and unlabored, cooperative to care, skin warm to touch iv site check on right hand w/ no s/s of infiltration.denies pain but cold packs placed on right side. iv atb administered. bed in lock position. will endorse to am rn for lloyd, for procedure surgeryin am, npo status. Blood sugar check at 120, Vital signs check, belongings check, silver ring in patient hand and sealed with tape. OR called for cloth picker time at 0700.
[2017-09-25] MEDS ORDERED: BUPIVACAINE 0.5 % PF 150 MG/30 ML VIAL ONE (07:16)
[2017-09-25] MEDS ORDERED: BACITRACIN 50000 UNITS/VIAL ONE (07:16)
[2017-09-25] MEDS ORDERED: MIDAZOLAM HCL 2 MG/2ML VIAL ONE (07:20)
[2017-09-25] MEDS ORDERED: FENTANYL PF 100MCG/2ML AMPUL ONE ×2 (07:20→08:29)
[2017-09-25] MEDS ORDERED: ROCURONIUM BROMIDE 50 MG/5 ML ONE (07:21)
--- NOTE | 2017-09-25 07:30 | NUR ---
PT WAS BROUGHT TO [facility] FOR IM RODDING OF RIGHT HIP BY DR INFANTE.PROTONIX IV NOT GIVEN. Addendum: 09/25/17 at 1228 by CALEB ARRIOLA RN PT IS WITH STABLE V/S DENYING ANY PAIN OR DISTRESS.
[2017-09-25 07:46] LABS: EOSINOPHILS % (AUTO) 0.1 % (0.0-6.0); HEMATOCRIT 32 % (33-45); HEMOGLOBIN 10.7 g/dL (11.5-14.8); LYMPHOCYTES # (AUTO) 0.4 /CMM (0.8-4.8); LYMPHOCYTES % (AUTO) 3.3 % (20.0-44.0); MEAN CORPUSCULAR HEMOGLOBIN 33 PG (26.0-33.0); MEAN CORPUSCULAR HGB CONC 34 g/dl (31.0-36.0); MEAN CORPUSCULAR VOLUME 97 fL (82-100); MONOCYTES # (AUTO) 0.6 /CMM (0.1-1.30); MONOCYTES % (AUTO) 4.8 % (2.0-12.0); NEUTROPHILS # (AUTO) 11.5 /CMM (1.8-8.9); NEUTROPHILS % (AUTO) 91.8 % (43.0-81.0); PLATELET COUNT (AUTO) 633 /CMM (150-450); RDW COEFFICIENT OF VARIATION 14.4 (11.5-15.0); RED BLOOD CELL COUNT(AUTO) 3.28 MIL/uL (4.0-5.2); WHITE BLOOD COUNT (AUTO) 12.6 K/uL (4.3-11.0)
[2017-09-25 08:01] LABS: ALBUMIN 1.6 g/dL (3.4-5.0); BILIRUBIN,TOTAL 0.5 mg/dL (0.2-1.0); CALCIUM, SERUM 7.9 mg/dL (8.5-10.1); CREATININE 0.6 mg/dL (0.6-1.3); MAGNESIUM 1.7 mg/dL (1.8-2.4); PHOSPHORUS 3.2 mg/dL (2.5-4.9); POTASSIUM 3.2 mmol/L (3.5-5.1); TOTAL PROTEIN, SERUM 5.1 g/dL (6.4-8.2)
--- NOTE | 2017-09-25 10:00 | NUR ---
PT CAME BACK FROM [facility]. S/P IM RODDING OF RT HIP BY DR INFANTE-ALERT AND ORIENTED X4.RESPIRATIONS NON LABORED ON ROOM AIR.VERBALLY RESPONSIVE.WITH 3 SURGICAL DRESSINGS INTACT, CLEAN AND DRY TO RT HIP AND RT LATERAL LOWER EXTREMITY.PT C/O RT HIP PAIN.WILL DO PAIN MGT PRN.CALL LIGHT PLACED WITHIN REACH. Addendum: 09/25/17 at 1554 by CALEB ARRIOLA RN PT CAME BACK FROM [facility] AT 10:30AM NOT 10:00 AM.
[2017-09-25] MEDS: Magnesium 1GM/D5W 100ML PREMIX 100 ML IV SCH ×2 (11:24→12:26)
[2017-09-25] MEDS: POTASSIUM CHLORIDE 20 MEQ TAB.PRT.SR PO SCH ×2 (11:26→13:01)
[2017-09-25] MEDS: DULOXETINE HCL 30 MG CAPSULE.DR PO SCH (11:45)
[2017-09-25] MEDS: buPROPion SR 150 MG TABLET.ER PO SCH (11:45)
[2017-09-25] MEDS: PANTOPRAZOLE 40 MG VIAL IV SCH (11:47)
[2017-09-25] MEDS ORDERED: ACETAMINOPHEN 325 MG TABLET PO PRN (12:30)
[2017-09-25] MEDS ORDERED: MORPHINE SULFATE INJ 4 MG/ML DISP.SYRIN IV PRN (12:30)
[2017-09-25] MEDS ORDERED: TRAMADOL HCL 50 MG TABLET PO PRN (12:30)
[2017-09-25] MEDS ORDERED: oxyCODONE IR immediate release 5 MG CAPSULE PO PRN (12:30)
[2017-09-25] MEDS ORDERED: SENNOSIDES/DOCUSATE SODIUM 1 TAB TABLET PO PRN (13:00)
[2017-09-25] MEDS ORDERED: CEFAZOLIN 1 GM in IV D5W 50 ML IV SCH (13:00)
[2017-09-25 16:00] VITALS: BP 112/66
[2017-09-25] MEDS: DOCUSATE SODIUM 100 MG CAPSULE PO SCH (16:50)
[2017-09-25] MEDS: ACETAMINOPHEN 325 MG TABLET PO SCH ×2 (16:51→23:14)
--- NOTE | 2017-09-25 17:00 | NUR ---
P.T. TRIED TO AMBULATE THE PT FOR THERAPY AND WILLIE Vann STATED THAT THE PT NEEDS MAX ASSIST BY 2 PERSON ASSIST-PT UNABLE TO WALK,HIGH FALL RISK AND RECOMMENDS [facility].
--- NOTE | 2017-09-25 18:33 | NUR ---
PT AWAKE TALKING TO HER SON AT BEDSIDE DENYING ANY PAIN OR DISTRESS.CALL LIGHT PLACED WITHIN REACH.
[2017-09-25 20:00] VITALS: BP 107/66
--- NOTE | 2017-09-25 20:00 | NUR ---
RN NOTES RECEIVED PATIENT AWAKE IN BED WITH NO DISTRESS NOTED. BREATHING EVEN AND UNLABORED. ALERT AND ORIENTED, VERBALLY COMMUNICATE NEEDS. NO COMPLAINT OF PAIN OR DISCOMFORT. WILL CONTINUE TO MONITOR.
[2017-09-25] MEDS: CEFTRIAXONE 1 G in IV D5W 50 ML IV SCH (20:35)
[2017-09-25] MEDS: FLUCONAZOLE IN NS 100 MG in PREMIX 1 EA IV SCH ×2 (20:35)
[2017-09-26] MEDS: METOCLOPRAMIDE HCL 10 MG/2 ML VIAL IV SCH ×4 (02:00→17:46)
[2017-09-26] MEDS: oxyCODONE IR immediate release 5 MG CAPSULE PO PRN ×4 (02:36→17:48)
[2017-09-26] MEDS: ACETAMINOPHEN 325 MG TABLET PO SCH ×4 (05:28→23:11)
[2017-09-26] MEDS: BLOOD SUGAR DIAGNOSTIC 1 EACH STRIP IN SCH ×3 (05:37→17:39)
[2017-09-26 07:21] LABS: HEMATOCRIT 27 % (33-45); HEMOGLOBIN 9.1 g/dL (11.5-14.8); LYMPHOCYTES # (AUTO) 0.5 /CMM (0.8-4.8); LYMPHOCYTES % (AUTO) 4.4 % (20.0-44.0); MEAN CORPUSCULAR HEMOGLOBIN 33 PG (26.0-33.0); MEAN CORPUSCULAR HGB CONC 34 g/dl (31.0-36.0); MEAN CORPUSCULAR VOLUME 96 fL (82-100); MONOCYTES # (AUTO) 0.8 /CMM (0.1-1.30); MONOCYTES % (AUTO) 6.4 % (2.0-12.0); NEUTROPHILS # (AUTO) 10.8 /CMM (1.8-8.9); NEUTROPHILS % (AUTO) 89.2 % (43.0-81.0); PLATELET COUNT (AUTO) 637 /CMM (150-450); RED BLOOD CELL COUNT(AUTO) 2.77 MIL/uL (4.0-5.2); WHITE BLOOD COUNT (AUTO) 12.1 K/uL (4.3-11.0)
--- NOTE | 2017-09-26 07:28 | NUR ---
MS RN OPENING NOTES RECEIVED PATIENT IN STABLE CONDITION. PATIENT IS ALERT AND ORIENTED. BEDSIDE RAILS ARE UP X2. BED IS LOCKED AND LOWERED. CALL LIGHT IS WITHIN REACH. WILL CONTINUE TO MONITOR.
[2017-09-26 07:42] LABS: CALCIUM, SERUM 7.9 mg/dL (8.5-10.1); CREATININE 0.5 mg/dL (0.6-1.3); PHOSPHORUS 2.6 mg/dL (2.5-4.9)
[2017-09-26 08:00] VITALS: BP 114/59
[2017-09-26] MEDS: DOCUSATE SODIUM 100 MG CAPSULE PO SCH ×2 (08:30→16:19)
[2017-09-26] MEDS: RIVAROXABAN 10 MG TABLET PO SCH (08:31)
[2017-09-26] MEDS: DULOXETINE HCL 30 MG CAPSULE.DR PO SCH (08:31)
[2017-09-26] MEDS: buPROPion SR 150 MG TABLET.ER PO SCH (08:31)
[2017-09-26] MEDS: PANTOPRAZOLE 40 MG VIAL IV SCH (08:32)
[2017-09-26] MEDS ORDERED: METO5VIA6 IV (10:21)
[2017-09-26] MEDS ORDERED: RIVA10TA PO (10:21)
[2017-09-26] MEDS ORDERED: DULO30CA2 PO (10:21)
[2017-09-26] MEDS ORDERED: CEFT1FRO2 IV (10:21)
[2017-09-26] MEDS ORDERED: FLUC200P12 IV (10:21)
[2017-09-26] MEDS ORDERED: BUPR150T12 PO (10:21)
[2017-09-26] MEDS ORDERED: OXYC5CAP18 PO (10:21)
[2017-09-26] MEDS ORDERED: TRAM50TA2 PO (10:21)
[2017-09-26 16:00] VITALS: BP 118/60
--- NOTE | 2017-09-26 19:00 | NUR ---
MS RN CLOSING NOTES PATIENT IS RESTING IN NO APPARENT DISTRESS. VITAL SIGNS ARE STABLE. PATIENT IS ALERT. BEDSIDE RAILS ARE UP X2. BED IS LOCKED AND LOWERED. WILL ENDORSE CARE TO WIRE INSPECTOR NURSE FOR SHERMAN.
--- NOTE | 2017-09-26 19:03 | NUR ---
RN OPENING NOTES PT IS RESTING IN BED. NO APPARENT S/S OF PAIN OR DISTRESS. NO COMPLAINTS OF SOB. SAFETY PRECAUTIONS IN PLACE. BED IN LOW LOCKED POSITION. 2XSIDERAILS UP. CALL LIGHT WITHIN REACH. WILL CONTINUE TO MONITOR.
[2017-09-26] MEDS: CEFTRIAXONE 1 G in IV D5W 50 ML IV SCH (19:36)
[2017-09-26 20:00] VITALS: BP 113/67
[2017-09-26] MEDS: FLUCONAZOLE IN NS 100 MG in PREMIX 1 EA IV SCH ×2 (21:03)
[2017-09-27] MEDS: METOCLOPRAMIDE HCL 10 MG/2 ML VIAL IV SCH ×4 (00:38→20:04)
[2017-09-27] MEDS: BLOOD SUGAR DIAGNOSTIC 1 EACH STRIP IN SCH ×5 (00:38→23:05)
[2017-09-27] MEDS: oxyCODONE IR immediate release 5 MG CAPSULE PO PRN ×4 (04:23→20:30)
[2017-09-27] MEDS: ACETAMINOPHEN 325 MG TABLET PO SCH ×4 (05:46→23:05)
--- NOTE | 2017-09-27 07:42 | NUR ---
RN CLOSING NOTES PT IS RESTING IN BED. NO APPARENT S/S OF PAIN OR DISTRESS. NO COMPLAINTS OF SOB. SAFETY PRECAUTIONS IN PLACE. BED IN LOW LOCKED POSITION. 2XSIDERAILS UP. CALL LIGHT WITHIN REACH. WILL CONTINUE TO MONITOR.
[2017-09-27 08:00] VITALS: BP 171/16
--- NOTE | 2017-09-27 08:36 | NUR ---
m/s forensic document examiner: notes c/o 05/15 generalized discomfort, medicated with oxy ir 10mg po as ordered. instructed to call for assistance. awaiting bed at [facility]. pt for d'c planning and aware. will continue to monitor.
[2017-09-27] MEDS: buPROPion SR 150 MG TABLET.ER PO SCH (08:37)
[2017-09-27] MEDS: DULOXETINE HCL 30 MG CAPSULE.DR PO SCH (08:37)
[2017-09-27] MEDS: DOCUSATE SODIUM 100 MG CAPSULE PO SCH ×2 (08:37→16:06)
[2017-09-27] MEDS: RIVAROXABAN 10 MG TABLET PO SCH (08:39)
[2017-09-27] MEDS: PANTOPRAZOLE 40 MG VIAL IV SCH (08:52)
--- NOTE | 2017-09-27 09:36 | NUR ---
m/s cognos architect: notes pt verbalized relief of pain. instructed to call for assistance. will continue to monitor.
--- NOTE | 2017-09-27 10:10 | NUR ---
m/s jewelry dipper: notes up with p.t. using [employer]. well. up in chair after p.t. tx. instructed to call for assistance. visiting.
--- NOTE | 2017-09-27 11:37 | NUR ---
m/s incident commander: notes c/o 05/15 generalized discomfort, medicated with oxy ir 10mg po as ordered. instructed to call for assistance.
--- NOTE | 2017-09-27 12:37 | NUR ---
m/s door patcher: notes pt verbalized relief of pain. instructed to call for assistance. will continue to monitor.
--- NOTE | 2017-09-27 13:30 | NUR ---
m/s oxygen therapist: notes assisted pt back to bed, kept comfortable. instructed to call for assistance. will continue to monitor.
[2017-09-27 16:00] VITALS: BP 142/61
--- NOTE | 2017-09-27 16:00 | NUR ---
evonne/mary smyth: notes colostomy care rendered. instructed to call for assistance. will continue to monitor. Addendum: 09/27/17 at 1606 by ML ELIZABETH LVN stool loose inside colostomy pouch.
--- NOTE | 2017-09-27 16:50 | NUR ---
m/s cardiographer: id f/u seen by skylar jaramillo) with orders. orders acknowledged.
[2017-09-27] MEDS: LEVOFLOXACIN (500MG) 500 MG TABLET PO SCH (16:59)
--- NOTE | 2017-09-27 18:00 | NUR ---
m/s chemic mangler: notes colostomy care rendered. kept clean and dry. needs attended. brother at bedside. instructed to call for assistance. will continue to monitor.
[2017-09-27 20:00] VITALS: BP 117/59
--- NOTE | 2017-09-27 20:00 | NUR ---
RN NOTES RECEIVED PATIENT IN BED, ALERT AND ORIENTED X3, CALM, ON ROOM AIR, SPO2 94%, NO COMPLAIN OF PAIN, RIGHT AC SALINE LOCK IS LEAKING, ABDOMINAL SX INCISION IS CLEAN AND SECURED WITH DRESSING, NO DISCHARGES, COLOSTOMY BAG IS LEAKING, OUTPUT IS WATERY GREEN STOOL. LIA CATHETER DRAINING WELL OF YELLOW URINE. KEPT SAFE AND COMFORTABLE, CALL LIGHT WITHIN REACH. WILL CHANGE COLOSTOMY BAG.
[2017-09-27 20:42] VITALS: BP 117/59
--- NOTE | 2017-09-27 21:05 | NUR ---
RN NOTES LEFT AC SALINE LOCK IS LEAKING, RESTARTED NEW SALINE LOCK TO RIGHT HAND #22 GAUGE. PROCEDURE TOLERATED WELL.
--- NOTE | 2017-09-27 23:12 | NUR ---
RN NOTES BG 118 NO INSULIN COVERAGE, ONLY MONITORING
[2017-09-28] MEDS: METOCLOPRAMIDE HCL 10 MG/2 ML VIAL IV SCH ×4 (02:14→18:55)
--- NOTE | 2017-09-28 03:11 | NUR ---
RN NOTES COLOSTOMY BEING MONITORED FOR LEAKAGE, REQUIRES DRAINING OF COLOSTOMY BAG PRN,
[2017-09-28] MEDS: oxyCODONE IR immediate release 5 MG CAPSULE PO PRN ×5 (04:22→23:06)
[2017-09-28] MEDS: ACETAMINOPHEN 325 MG TABLET PO SCH ×4 (04:22→23:06)
[2017-09-28] MEDS: BLOOD SUGAR DIAGNOSTIC 1 EACH STRIP IN SCH ×4 (05:31→23:07)
--- NOTE | 2017-09-28 05:45 | NUR ---
RN NOTES BG 119 MG/DL, NO INSULIN COVERAGE, ONLY MONITORING
[2017-09-28 06:33] LABS: BASOPHILS % (AUTO) 0.2 % (0.0-2.0); EOSINOPHILS % (AUTO) 0.2 % (0.0-6.0); HEMATOCRIT 28 % (33-45); HEMOGLOBIN 9.3 g/dL (11.5-14.8); LYMPHOCYTES # (AUTO) 0.6 /CMM (0.8-4.8); LYMPHOCYTES % (AUTO) 7.5 % (20.0-44.0); MEAN CORPUSCULAR HEMOGLOBIN 32 PG (26.0-33.0); MEAN CORPUSCULAR HGB CONC 33 g/dl (31.0-36.0); MEAN CORPUSCULAR VOLUME 96 fL (82-100); MONOCYTES # (AUTO) 0.6 /CMM (0.1-1.30); MONOCYTES % (AUTO) 7.1 % (2.0-12.0); NEUTROPHILS # (AUTO) 6.9 /CMM (1.8-8.9); PLATELET COUNT (AUTO) 574 /CMM (150-450); RDW COEFFICIENT OF VARIATION 14.1 (11.5-15.0); RED BLOOD CELL COUNT(AUTO) 2.87 MIL/uL (4.0-5.2); WHITE BLOOD COUNT (AUTO) 8.1 K/uL (4.3-11.0)
--- NOTE | 2017-09-28 06:33 | NUR ---
RN NOTES PATIENT IN BED, ALERT AND AWAKE, NO SOB, ON ROOM AIR, PROVIDED PAIN MEDICATION ROUTINE AND PRN OXYCODONE IR. RIGHT HIP DRESSING IS CLEAN, NO DRAINAGE, NO BLEEDING, ABDOMINAL INCISION IS INTACT, NO DEHISCENSE, LEFT LOWER QUADRANT COLOSTOMY IS DRAINING WITH LIQUID STOOL WITH OUTPUT OF 600 CC. BEING DRAINED PRN, REPOSITIONED FOR COMFORT, ALL NEEDS ATTENDED, CALL LIGHT WITHIN REACH.
[2017-09-28 07:03] LABS: CALCIUM, SERUM 7.7 mg/dL (8.5-10.1); CREATININE 0.5 mg/dL (0.6-1.3); MAGNESIUM 1.8 mg/dL (1.8-2.4); POTASSIUM 3.9 mmol/L (3.5-5.1)
--- NOTE | 2017-09-28 07:35 | NUR ---
MS RN OPENING NOTES. PT RECEIVED A&0X3, AWAKE AND RESTING IN BED. PT TOLERATING ROOM AIR WITH SOB. PT REPORTING PAIN 3/10. PT WITH IVC AT L HAND G#22 FLUSHED AND PATENT. PT LAI DRAINING ALPESH YELLOW URINE. L SIDE COLOSTOMY BAG INTACT AND OPERATIONAL. MIDLINE INCISION INSPECTED. RIGHT HIP DRESSING INTACT. BED IN LOWEST LOCKED POSITION WITH HANDRAILSX2 AND CALL HAWTHORNE WITHIN REACH. PT BRIEFED ON TODAY'S PLAN OF CARE AND IS WITHOUT CONCERN OR COMPLAINT AT THIS TIME.
[2017-09-28 08:19] VITALS: BP 113/66
[2017-09-28] MEDS: DOCUSATE SODIUM 100 MG CAPSULE PO SCH ×3 (09:00→17:00)
[2017-09-28] MEDS: buPROPion SR 150 MG TABLET.ER PO SCH (09:04)
[2017-09-28] MEDS: PANTOPRAZOLE 40 MG VIAL IV SCH (09:04)
[2017-09-28] MEDS: DULOXETINE HCL 30 MG CAPSULE.DR PO SCH (09:04)
[2017-09-28] MEDS: RIVAROXABAN 10 MG TABLET PO SCH (09:10)
--- NOTE | 2017-09-28 13:23 | NUR ---
RN NOTES. COLOSTOMY BAG CHANGED.
[2017-09-28] MEDS: LEVOFLOXACIN (500MG) 500 MG TABLET PO SCH (17:35)
--- NOTE | 2017-09-28 18:28 | NUR ---
MS RN NOTES. PT A&0X3 BUT CURRENTLY ASLEEP. PT TOLERATING ROOM AIR WITH NO SOB. PT REPORTING PAIN 3/10 AT THIS TIME. PT WITH IVC AT L HAND SALINE LOCKED. PT WITH LAI DRAINING 400 ML ALPESH YELLOW URINE. PT BED IN LOWEST LOCKED POSITION WITH CALL HAWTHORNE WITHIN REACHA ND HANDRAILSX3. PT WITHOUT CONCERN OR COMPLAINT AT THIS TIME. ALL DAY NURSE DUTIES ATTENDED TO, WILL ENDORSE TO NIGHT NURSE.
[2017-09-28 20:00] VITALS: BP 126/62
--- NOTE | 2017-09-28 20:00 | NUR ---
RN NOTES PATIENT IN BED, ALERT AND ORIENTED X3, CALM, NO SOB, NO RESPIRATORY DISTRESS, SPO2 AT ROOM AIR 98%, RECEIVED PAIN MEDICATION FROM AM NURSE MINUTES AGO. LEFT HAND SALINE LOCK IS PATENT AND SECURED WITH DRESSING, RIGHT HIP SX INCISION IS CLEAN, DRESSING INTACT, ABDOMINAL SX INCISION IS CLEAN, WITH MINIMAL DRAINAGE TO LOWER PORTION OF INCISION. COLOSTOMY BAG IS INTACT, DRAINING WITH MINIMAL BROWN LIQUID STOOL. LAI CATHETER DRAINING DARK YELLOW URINE. NEEDS ATTENDED, CALL LIGHT WITHIN REACH.
[2017-09-29] MEDS: METOCLOPRAMIDE HCL 10 MG/2 ML VIAL IV SCH ×4 (00:24→20:04)
[2017-09-29] MEDS: oxyCODONE IR immediate release 5 MG CAPSULE PO PRN ×2 (03:21→11:28)
--- NOTE | 2017-09-29 04:35 | NUR ---
RN NOTES [facility] CALLED TO NOTIFY THERE IS A BED AVAILABLE FOR PATIENT. WILL ENDORSE TO AM SHIFT TO ARRANGE TRANSFER
[2017-09-29] MEDS: ACETAMINOPHEN 325 MG TABLET PO SCH ×4 (05:15→23:26)
[2017-09-29] MEDS: BLOOD SUGAR DIAGNOSTIC 1 EACH STRIP IN SCH ×4 (05:15→23:26)
--- NOTE | 2017-09-29 05:19 | NUR ---
RN NOTES BG 104 MG/DL NO INSULIN COVERAGE, ONLY MONITORING
--- NOTE | 2017-09-29 06:42 | NUR ---
RN NOTES PATIENT IS ALERT AND AWAKE, NO SOB, NO DISTRESS, PROVIDED PAIN MEDICATION DURING SHIFT, PROVIDED GOOD PERINEAL CARE, CHANGED DRESSING TO ABDOMINAL INCISION, COLOSTOMY HAS SOFT STOOL OUTPUT, LAI CATHETER DRAINING WELL. NEEDS ATTENDED, CALL LIGHT WITHIN REACH.
[2017-09-29 08:00] VITALS: BP 154/68
[2017-09-29] MEDS: RIVAROXABAN 10 MG TABLET PO SCH (08:00)
[2017-09-29] MEDS: PANTOPRAZOLE 40 MG VIAL IV SCH (09:00)
[2017-09-29] MEDS: DOCUSATE SODIUM 100 MG CAPSULE PO SCH ×2 (09:07→17:26)
[2017-09-29] MEDS: buPROPion SR 150 MG TABLET.ER PO SCH (09:07)
[2017-09-29] MEDS: DULOXETINE HCL 30 MG CAPSULE.DR PO SCH (09:08)
[2017-09-29] MEDS: LORAZEPAM INJ 2 MG/ML VIAL IV PRN ×2 (12:50→20:51)
--- NOTE | 2017-09-29 15:43 | NUR ---
RN NOTES FC REMOVED PER MD ORDER. FC OUTPUT FROM [phone] IS 550 ML.
[2017-09-29 16:00] VITALS: BP 142/73
[2017-09-29] MEDS: LEVOFLOXACIN (500MG) 500 MG TABLET PO SCH (17:26)
--- NOTE | 2017-09-29 18:39 | NUR ---
RN CLOSING NOTES PT IS IN BED RESTING. NO S/S OF SOB OR RESPIRATORY DISTRESS. NO C/O PAIN AT THIS TIME. PER MD ORDER, PT TO BE DC TO [facility] TOMORROW. ALL PT NEEDS ANTICIPATED AND MET. SAFETY MEASURES IN PLACE. CALL LIGHT WITHIN REACH. WILL ENDORSE TO SENIOR HR MANAGER FOR SHERMAN.
--- NOTE | 2017-09-29 19:30 | NUR ---
MS RN OPENING NOTES: PT IS BED ASLEEP AT THIS TIME BUT IS EASILY AROUSABLE TO NAME AND TOUCH. PT IS A/OX3. PT HAS IV ON L HAND #22G AND IS PATENT AND INTACT. CURRENTLY S/L. PT HAS COLOSTOMY BAG ON L LOWER QUADRANT WITH SOFT, BROWN STOOL NOTED. CALL LIGHT WITHIN PT'S REACH. BED ALARM ACTIVATED. BED KEPT IN LOW, LOCKED POSITION, AND SIDE RAILS X 2UP. NO SOB NOTED. NO S/S OF DISTRESS NOTED AT THIS TIME. WILL CONTINUE TO MONITOR PT.
[2017-09-29 20:00] VITALS: BP 130/71
--- NOTE | 2017-09-29 20:52 | NUR ---
MS RN NOTES: PT IS FEELING ANXIOUS AND REQUESTING FOR HER ATIVAN. PT WAS ADMINISTERED HER ATIVAN 1MG IV. WILL CONTINUE TO MONITOR PT.
--- NOTE | 2017-09-29 23:37 | NUR ---
MS RN NOTES: WENT IN ROOM AND FOUND PT PULLED OUT HER IV SITE ON HER L HAND. WILL ATTEMPT TO START ANOTHER IV. NO BLEEDING NOTED. L HAND ELEVATED.
--- NOTE | 2017-09-30 00:06 | NUR ---
MS RN NOTES: PT REFUSING FOR AN IV START AT THIS TIME. INFORMED HER THAT SHE HAS SCHEDULED REGLAN IV SOON AND SHE WANTS TO TRY TO GO WITHOUT IT. WILL ASK AGAIN. EXPLAINED RISKS AND BENEFITS X3.
[2017-09-30] MEDS: oxyCODONE IR immediate release 5 MG CAPSULE PO PRN (00:11)
--- NOTE | 2017-09-30 00:12 | NUR ---
MS RN NOTES: PT GOT OUT OF BED TO AMBULATE TO THE RESTROOM WITH THE WALKER. AFTER GETTING BACK TO BED, PT IS COMPLAINING OF 7/10 R HIP AND LEG PAIN. PT WAS ADMINISTERED OXY IR 5MG PO. WILL CONTINUE TO MONITOR PT.
--- NOTE | 2017-09-30 01:07 | NUR ---
MS RN NOTES: PT REFUSING FOR AN IV START AT THIS TIME. PT SAYS SHE IS FINE AND JUST WANTS TO GO TO SLEEP. PT DENIES FEELING ANY N/V . EXPLAINED TO PT RISKS AND BENEFITS OF REGLAN X3 BUT PT DOES NOT WANT IT AT THIS TIME. WILL CONTINUE TO MONITOR PT.
[2017-09-30] MEDS: METOCLOPRAMIDE HCL 10 MG/2 ML VIAL IV SCH ×3 (01:09→12:43)
--- NOTE | 2017-09-30 03:25 | NUR ---
MS RN NOTES: COLOSTOMY BAG CHANGED. OFFERED TO START AN IV AND PT AGREED. NEW IV ON L HAND 22G STARTED AND IS PATENT AND INTACT.
[2017-09-30 04:09] VITALS: BP 139/70
[2017-09-30] MEDS: LORAZEPAM INJ 2 MG/ML VIAL IV PRN (04:15)
--- NOTE | 2017-09-30 04:19 | NUR ---
MS RN NOTES: PT FEELING ANXIOUS. PT WAS ADMINISTERED ATIVAN VIA IV. WILL CONTINUE TO MONITOR PT.
[2017-09-30] MEDS: ACETAMINOPHEN 325 MG TABLET PO SCH ×3 (05:24→16:31)
[2017-09-30] MEDS: BLOOD SUGAR DIAGNOSTIC 1 EACH STRIP IN SCH ×2 (05:24→11:53)
--- NOTE | 2017-09-30 07:35 | NUR ---
MS RN CLOSING NOTES: ALL NEEDS WERE ATTENDED AND ANTICIPATED FOR. PT IS SITTING UP IN BED. PT IS A/OX3 AND KEEPS ASKING FOR LAI CATH. EXPLAINED TO HER THAT RELIEF WORKER D/C'ED. PT HAS IV ON L HAND #22G AND IS PATENT AND INTACT. CURRENTLY S/L. PT HAS COLOSTOMY BAG ON L LOWER QUADRANT WITH SOFT, BROWN STOOL NOTED. CALL LIGHT WITHIN PT'S REACH. BED ALARM ACTIVATED. BED KEPT IN LOW, LOCKED POSITION, AND SIDE RAILS X 3UP. NO SOB NOTED. NO S/S OF DISTRESS NOTED AT THIS TIME. INSTRUCTED PT TO USE CALL LIGHT FOR ASSISTANCE. ENDORSED TO AM NURSE FOR SHERMAN.
--- NOTE | 2017-09-30 07:48 | NUR ---
RN OPENING NOTES RECEIVED PATIENT IN BED RESTING, RESPONSIVE. A/OX2. NO ACUTE DISTRESS, NO SOB NOTED. NO S/S OF PAIN OR DISCOMFORT. IV SITE INTACT AND PATENT. COLOSTOMY BAG IN PLACE. KEPT PATIENT SAFE AND COMFORTABLE. BED IN LOCKED, LOW POSITION, SIDERAILS UP X2, CALL LIGHT IN REACH. WILL CONTINUE TO MONITOR ACCORDINGLY. Addendum: 09/30/17 at 0756 by OSIRIS HARDING PATIENT IS A/O X4.
[2017-09-30 07:54] LABS: BASOPHILS % (AUTO) 0.1 % (0.0-2.0); EOSINOPHILS % (AUTO) 0.2 % (0.0-6.0); HEMATOCRIT 29 % (33-45); HEMOGLOBIN 9.7 g/dL (11.5-14.8); LYMPHOCYTES # (AUTO) 0.7 /CMM (0.8-4.8); LYMPHOCYTES % (AUTO) 6.7 % (20.0-44.0); MEAN CORPUSCULAR HEMOGLOBIN 32 PG (26.0-33.0); MEAN CORPUSCULAR HGB CONC 34 g/dl (31.0-36.0); MEAN CORPUSCULAR VOLUME 96 fL (82-100); MONOCYTES # (AUTO) 0.5 /CMM (0.1-1.30); MONOCYTES % (AUTO) 5.2 % (2.0-12.0); NEUTROPHILS # (AUTO) 8.5 /CMM (1.8-8.9); NEUTROPHILS % (AUTO) 87.8 % (43.0-81.0); PLATELET COUNT (AUTO) 614 /CMM (150-450); RDW COEFFICIENT OF VARIATION 14.3 (11.5-15.0); RED BLOOD CELL COUNT(AUTO) 2.98 MIL/uL (4.0-5.2); WHITE BLOOD COUNT (AUTO) 9.7 K/uL (4.3-11.0)
[2017-09-30 08:00] VITALS: BP 137/74
[2017-09-30 08:06] LABS: CALCIUM, SERUM 8.4 mg/dL (8.5-10.1); CREATININE 0.6 mg/dL (0.6-1.3); MAGNESIUM 1.7 mg/dL (1.8-2.4); PHOSPHORUS 3.2 mg/dL (2.5-4.9); POTASSIUM 4.1 mmol/L (3.5-5.1)
[2017-09-30] MEDS: DOCUSATE SODIUM 100 MG CAPSULE PO SCH ×2 (08:42→16:31)
[2017-09-30] MEDS: PANTOPRAZOLE 40 MG VIAL IV SCH (08:42)
[2017-09-30] MEDS: buPROPion SR 150 MG TABLET.ER PO SCH (08:42)
[2017-09-30] MEDS: RIVAROXABAN 10 MG TABLET PO SCH (08:42)
[2017-09-30] MEDS: DULOXETINE HCL 30 MG CAPSULE.DR PO SCH (08:42)
[2017-09-30] MEDS ORDERED: Magnesium 1GM/D5W 100ML PREMIX 100 ML IV SCH (10:30)
[2017-09-30] MEDS ORDERED: MAGNESIUM OXIDE 400 MG TABLET PO ONE (11:00)
[2017-09-30] MEDS: MORPHINE SULFATE INJ 4 MG/ML DISP.SYRIN IV PRN (11:05)
[2017-09-30 16:00] VITALS: BP 130/70
[2017-09-30] MEDS: LEVOFLOXACIN (500MG) 500 MG TABLET PO SCH (16:32)
--- NOTE | 2017-09-30 19:00 | NUR ---
MULTIMEDIA INSTRUCTIONAL DESIGNER NOTES DISCHARGE PATIENT IN STABLE CONDITION, PICKED UP BY AMBULANCE CREW. DISCHARGE INSTRUCTIONS GIVEN, PATIENT VERBALIZED UNDERSTANDING. DISCHARGE PAPERWORK AND ALL BELONGING GIVEN BACK TO PATIENT. BELONGINGS FORM SIGNED. REPORT GIVEN TO JOAO SCHULTZ FROM [facility], D/C INSTRUCTIONS GIVEN. D/C IV SITE, APPLIED PRESSURE, NO BLEEDING, NO COMPLICATIONS NOTED. ARM BAND REMOVED.
== END 2017-09-30 19:30 | DRG 330 ==
LOC: ER 14:30 → TELE 17:13 → MED 09-14 11:00
PROVIDERS: ADMIT Nurse Practitioner Acute Care; ATTEND Nurse Practitioner Acute Care
PROC: 0DTG0ZZ Resection of Left Large Intestine, Open Approach (ICD-10-PCS; principal; 2017-09-16 17:04)
PROC: 0D1L0Z4 Bypass Transverse Colon to Cutaneous, Open Approach (ICD-10-PCS; principal; 2017-09-16 17:04)
PROC: 0QS606Z Reposition Right Upper Femur with Intramedullary Internal Fixation Device, Open Approach (ICD-10-PCS; 2017-09-25)
DX: K57.20 Diverticulitis of large intestine with perforation and abscess without bleeding (principal); S72.21XA Displaced subtrochanteric fracture of right femur, initial encounter for closed fracture; K66.8 Other specified disorders of peritoneum; F33.2 Major depressive disorder, recurrent severe without psychotic features; E88.09 Other disorders of plasma-protein metabolism, not elsewhere classified; N39.0 Urinary tract infection, site not specified; E86.0 Dehydration; W06.XXXA Fall from bed, initial encounter; N73.9 Female pelvic inflammatory disease, unspecified; F17.210 Nicotine dependence, cigarettes, uncomplicated; K59.00 Constipation, unspecified; M16.0 Bilateral primary osteoarthritis of hip; R79.89 Other specified abnormal findings of blood chemistry; D72.829 Elevated white blood cell count, unspecified; B96.20 Unspecified Escherichia coli [E. coli] as the cause of diseases classified elsewhere; F41.0 Panic disorder [episodic paroxysmal anxiety]; Y93.9 Activity, unspecified; Y92.230 Patient room in hospital as the place of occurrence of the external cause; Y99.9 Unspecified external cause status; R91.1 Solitary pulmonary nodule
CPT/HCPCS: 36415; 71010-TC; 73501; 73502; 73552; 74000-TC; 80048-TC; 80053-TC; 80061-TC; 80076-TC; 81000-TC; 82962-TC; 83690-TC; 83735-TC; 84100-TC; 84443-TC; 85025-TC; 85610-TC; 85730-TC; 86850-TC; 87070-TC; 87081-TC; 87086-TC; 87186-TC; 88305-TC; 88307-TC; 93307-TC; 93971-TC; 97110-TC; 97116-TC; 97530-TC; A4216; A4606; A6209; A6253; A6402; A6403; C1713; C9113; J0690; J0696; J0744; J1100; J1450; J1650; J1940; J2060; J2250; J2270; J2310; J2405; J2543; J2704; J2710; J2765; J3010; J3475; J3480; J3490; J7030; J7040; J7042; J7050; J7060; Q9963; Q9967; Z7610